=== PATIENT | male | born 1945 | race Caucasian/White ===

== ENCOUNTER → 2024-02-04 15:18 | Outpatient (REF) | payer OTHER, SELFPAY | LOC: PAVMRI 15:18 | PROVIDERS: ATTENDING PHYSICIAN Physical Medicine & Rehabilitation; PRIMARYCARE PHYSICIAN Family Medicine | DX: M54.16 Radiculopathy, lumbar region (principal) | CPT/HCPCS: 72148 ==

== ENCOUNTER 2024-04-17 16:51 | Inpatient (IN) | payer OTHER, SELFPAY ==
[2024-04-17] VITALS (11 sets, daily range): BP systolic 90–134; BP diastolic 49–110; BMI 28.3; BMI 28.2
[2024-04-17 11:10] LABS: % Basophils 0.6 % (0-2); % Eosinophils 2.1 % (0-6); % Immature Granulocytes 0.3 % (0-0.5); % Lymphocytes 11.4 % (20.5-51.1); % Monocytes 8.9 % (1.7-9.3); % Neutrophils 76.7 % (42.2-75.2); Absolute Basophils 0.1 10^3/uL (0-0.2); Absolute Eosinophils 0.2 10^3/uL (0-0.7); Absolute Monocytes 0.8 10^3/uL (0.1-0.6); Absolute Neutrophils 6.7 10^3/uL (1.4-6.5); Hematocrit 31.6 % (39.0-52.0); Mean Corp Hgb Conc. 31.6 g/dL (33.0-37.0); Mean Corpuscular Hgb 29.9 pg (27.0-31.0); Mean Corpuscular Volume 94.3 fL (80.0-94.0); Mean Platelet Volume 10.5 fL (7.4-10.4); Nucleated Red Blood Cells % 0 % (-); Platelet Count 307 10^3/uL (130-400); Red Blood Cell Count 3.35 10^6/uL (4.70-6.10); Red Cell Dist. Width 15.7 % (11.5-14.5); White Blood Cell Count 8.8 10^3/uL (4.8-10.8)
[2024-04-17 11:24] LABS: ALT (SGPT) 14 U/L (0-50); AST (SGOT) 24 U/L (17-59); Albumin 3.7 g/dl (3.5-5.0); Alkaline Phosphatase 207 U/L (38-126); Blood Urea Nitrogen 20 mg/dl (9-20); Carbon Dioxide 24 mmol/L (22-30); Chloride 104 mmol/L (98-107); Estimated Creatinine Clearance 41 ml/min; Glucose 138 mg/dl (70-99); Sodium 137 mmol/L (135-145); Total Protein 6.6 g/dl (6.3-8.2); eGFR 50.81
[2024-04-17 11:32] LABS: NT-proBNP 4220 pg/ml
[2024-04-17 12:57] LABS: Urine Albumin Negative (Neg - Trace); Urine Bilirubin Negative (Negative); Urine Character Clear (Clear); Urine Color Yellow; Urine Glucose Negative (Negative); Urine Ketone Negative (Negative); Urine Leukocyte 2+ (Negative); Urine Nitrite Negative (Negative); Urine Occult Blood Negative (Negative); Urine Urobilinogen Negative (Neg - 1+)
[2024-04-17 13:33] LABS: Urine Bacteria Few (Negative); Urine White Cell 21-25 /HPF (0-5)
--- NOTE | 2024-04-17 15:05 | ED.GENMED ---
History of Present Illness
General
Chief Complaint: Swelling
Source: patient and family
Time Seen by Provider: 04/17/24 12:10
History of Present Illness
History of Present Illness:
78-year-old male presents with family who states the patient has become more confused and weak with increased leg swelling. He recently had a right subtrochanteric hip fracture that was treated at [facility]. While admitted to the hospital
postoperatively he developed a GI bleed. He also developed a DVT in his right leg. He had an IVC filter placed while in the hospital and was started on Plavix. He was discharged to rehab. Over the past several days he has been noted to be
confused and straight from his cognitive baseline. They also note increased swelling to both legs. They note a cough and noticed that he was easily fatigued. No prior diagnosis of CHF. No chills or sweats. No abdominal pain or vomiting. No
other complaints at this
Past History
Past History
ED Past Medical History: CAD, HTN, Hypercholesterolemia, NIDDM and AL
ED Past Surgical History: Cardiac (CABG times 01/03/1997)
Social History
Tobacco: Non-smoker
Alcohol: Occasional
Drug: None
Personal:
Living: with family
Employment: Retired
Family History
Family History: Hypertension and CAD
Phy Exam
Physical Exam
Physical Exam:
General: Well-appearing male no acute respiratory distress
HEENT: Normocephalic atraumatic
Heart: Regular rate and rhythm no murmurs
Lungs: No wheeze or rales
Abdomen soft nontender nondistended
Extremities: Pitting edema bilateral lower extremities right greater than the left no cyanosis
Vascular: 2+ dorsalis pedis pulse bilateral feet
Neurologic: Good sensation both legs alert. Somewhat slow to respond to questions at times. No facial asymmetry
Scores
Heart Failure Risk
Heart Failure Risk Score: Not Applicable
Course
Orders/Labs/Results
Orders:
Orders
04/17/24 10:54
Electrocardiogram (*1) Urgent
Reason for Study: Shortness of Breath
04/17/24 10:55
EKG- Treatment ONCE
04/17/24 10:56
BNP [NT-proBNP] Urgent
Complete Blood Count/With Diff Urgent
Comprehensive Metabolic Panel Urgent
04/17/24 12:25
Venous Doppler Lwr Ext Rt [US Periph Venous LOWER Ext RT] Urgent
Comment:
Reason For Exam: swelling
04/17/24 12:26
CR Chest - 2 Views Urgent
Comment:
Reason For Exam: cough, sob
04/17/24 12:48
Urinalysis Reflex To Culture Urgent
Date Specimen was Collected: 04/17/24
Time Specimen was Collected: 12:46
Urine Microscopic Reflex Cult Urgent
Urine Culture Urgent
GRAYSON Source: U
Specimen Description:
Date Specimen was Collected: 04/17/24
Time Specimen was Collected: 12:46
Abnormal Lab Results
04/17/24 04/17/24
10:56 12:48
RBC 3.35 L 10^6/uL
(4.70-6.10)
Hgb 10.0 L g/dL
(13.0-18.0)
Hct 31.6 L %
(39.0-52.0)
MCV 94.3 H fL
(80.0-94.0)
MCHC 31.6 L g/dL
(33.0-37.0)
RDW 15.7 H %
(11.5-14.5)
MPV 10.5 H fL
(7.4-10.4)
Absolute Neuts (auto) 6.7 H 10^3/uL
(1.4-6.5)
Absolute Lymphs (auto) 1.0 L 10^3/uL
(1.2-3.4)
Absolute Monos (auto) 0.8 H 10^3/uL
(0.1-0.6)
Neutrophils % 76.7 H %
(42.2-75.2)
Lymphocytes % 11.4 L %
(20.5-51.1)
Creatinine 1.4 H mg/dL
(0.7-1.3)
Glucose 138 H mg/dl
(70-99)
Alkaline Phosphatase 207 H U/L
(38-126)
Leukocyte Esterase Rfl 2+ A
(Negative)
Urine WBC (Reflex) 21-25 A /HPF
(0-5)
Urine Bacteria (Reflex) Few A
(Negative)
04/17/24 10:56
04/17/24 10:56
Vital Signs
Initial and Last Documented VS:
Initial Vital Signs
Temp Pulse Resp BP Pulse Ox
97.7 F 87 19 113/58 94
04/17/24 10:53 04/17/24 10:53 04/17/24 10:53 04/17/24 10:53 04/17/24 10:53
Last Documented Vital Signs
Temp Pulse Resp BP Pulse Ox
97.7 F 85 15 90/49 95
04/17/24 10:53 04/17/24 13:15 04/17/24 13:15 04/17/24 13:02 04/17/24 11:15
MDM/Problems Addressed
Differential Diagnosis Includes:
Weakness confusion leg edema cough. Considered DVT versus CHF versus UTI or anemia.
Discussed recent hospitalization at [facility] with the daughter.
Ultrasound right leg pending. Chest x-ray ordered. Labs pending. Urinalysis pending
*Critical Care Note
Total Time (30-74mins, 75-104mins- exclusive of procedures): Not Applicable
Update Note
Update Note:
Urinalysis with leukocytes 21 white blood cells per high-powered field and few bacteria. Question possible underlying UTI will start Rocephin
Ultrasound right leg demonstrates DVT in the right lower leg. When inquired about any anticoagulants, family states he developed a GI bleed in the hospital and they opted to place a filter instead. BNP is elevated today at over 4000. No prior
diagnosis of CHF. Patient has a cough but chest x-ray is clear. I suspect some of his symptoms may be related to CHF. Lasix ordered. Will admit to hospital for volume overload, DVT and urinary tract infection
ED Attending Note
-
Portions of this chart may have been created with voice recognition software.� Occasional wrong word or��sound alike� substitutions may have occurred due to the inherent limitations of voice recognition software.
Discharge Plan
Departure
Patient Disposition: Admit
Date of Disposition: 04/17/24
Time of Disposition: 15:13
Admit to: Telemetry
Presentation/result/management discussed w/ accepting MD/DO: Hospitalist
Discharge Problem:
CHF (congestive heart failure), Acute UTI, DVT (deep venous thrombosis)
Prescriptions:
No Action
fenofibrate nanocrystallized 145 MG tablet
145 mg PO HS
nitroglycerin 0.4 MG tablet, sublingual
0.4 mg sublingual [id number] PRN (Reason: chest pain)
atorvastatin 20 MG tablet
20 mg PO HS
fluticasone propionate 50 mcg/actuation Arvin,Suspension
1 spray INTRANASAL BIDPRN PRN (Reason: ALLERGIES)
isosorbide mononitrate 30 MG tablet extended release 24 hr
30 mg PO DAILY
tamsulosin 0.4 mg Capsule
0.4 mg PO HS Qty: 30 0RF
cyanocobalamin (vitamin B-12) 1,000 mcg capsule
1,000 mcg PO DAILY Qty: 30 0RF
alprazolam 0.5 mg Tablet
0.5 mg PO DAILYPRN PRN (Reason: anxiety)
acetaminophen [Tylenol] 325 mg Tablet
650 mg PO Q6HPRN PRN (Reason: mild pain)
metoprolol succinate [Toprol XL] 50 mg Tablet Extended Release 24 Hr
50 mg PO DAILY
hydrocodone-acetaminophen 5-325 mg Tablet
1 tab PO Q4HPRN PRN (Reason: severe pains)
clopidogrel [Plavix] 75 mg Tablet
75 mg PO DAILY
magnesium hydroxide [Milk of Magnesia] 400 mg/5 mL Suspension
2,400 mg PO [id number] PRN (Reason: constipation)
bisacodyl [Dulcolax (bisacodyl)] 10 mg Suppository
10 mg IA DAILYPRN PRN (Reason: if on bm aftr mom)
pantoprazole [Protonix] 40 mg Tablet,Delayed Release (Dr/Ec)
40 mg PO DAILY
lidocaine 5 % Adhesive Patch,Medicated
1 patch TOPICAL DAILY
Fleet Enema 19-7 gram/118 mL Enema
118 ml IA DAILYPRN PRN (Reason: if no bm aftr dulcolax)
furosemide [Lasix] 20 mg Tablet
20 mg PO .[id number]
Patient Comments:
for 7 days starting 04/17/2024
loratadine [Claritin] 10 mg Tablet
10 mg PO DAILY
coQ10 (ubiquinol) 200 mg Capsule
200 mg PO DAILY
Referrals:
Julito Perry MD [Family Provider] -
Interventions
Interventions:
*Risk Screen - Suicide Last Done: 04/17/24 10:53
*General Assessment Last Done: 04/17/24 10:53
*Neglect/Abuse Screening Last Done: 04/17/24 10:53
*ED COVID-19 Vaccine History Last Done: 04/17/24 10:53
ED- Cardiac Assessment Last Done: 04/17/24 10:53
ED- Pulmonary Assessment Last Done: 04/17/24 10:53
ED-Skin Assessment Last Done: 07/01/24 10:53
Discharge Date and Time
Print Language: MOHAWK
[2024-04-17 15:08] LABS: Urine Red Blood Cell 0-2 /HPF (0-2)
[2024-04-17] MEDS: LASIX 40 MG IV (15:21)
[2024-04-17] MEDS: ROCEPHIN 1000 MG IV (15:26)
--- NOTE | 2024-04-17 15:50 | HPS.HSE ---
Addendum entered and electronically signed by Shilo Servin MD 04/17/24 16:43:
78-year-old male with a past medical history of recent right hip fracture status post repair at [facility] 1 month ago, acute right lower extremity DVT status post IVC filter due GI bleed, CAD, stage III CKD, bladder cancer, hypertension, hyperlipidemia,
and type 2 diabetes presents from [facility] short-term rehab for worsening bilateral lower extremity edema. He was recently started on Lasix. Repeat lower extremity Dopplers here shows the previous acute right lower extremity DVT.
Patient denies chest pain, shortness of breath, or palpitations. He does have a cough that has been present for 2 weeks, is now worsened.
He denies orthopnea. No fever, no dysuria.
Will treat with Lasix 40 mg IV daily, check echocardiogram, consult cardiology.
Urine analysis shows pyuria. Continue Rocephin for now, follow-up on cultures.
I have personally seen and examined the patient, and agree with the plan of care as documented by JOSELO Shukla.
Advance care planning discussed, patient is a full code.
All other issues as outlined by the advanced care practitioner.
Updated daughter at bedside 04/17/2024.
Total time spent to see the patient on the floor, examine the patient, review data and lab results, discuss treatment plan with patient, nursing staff around 76 minutes.
Original Note:
Family Physician
-
Family Physician: uJlito Perry
Chief Complaint
-
b/l LE Edema
cough
History of Present Illness
78-year-old male with PMH for CAD,HTN, HLD, DM, [place] presented to us with confusion, worsening agitation, generalized weakness, and B/LE LE. He recently had a right subtrochanteric hip fracture that was treated at [facility]. While admitted
to the hospital postoperatively he developed a GI bleed. He also developed a DVT in his right leg. He had an IVC filter placed while in the hospital and was started on Plavix. He was discharged to rehab. Over the past several days he has been
noted to be confused ,agitated. denied dysuria, urinary frequency, burning. he was also noted to have worsening b/l LE edema. he was started on Lasix last night.he is complaining of cough, which get worse when talking and with activity. denied sob.
denied SINGH< dizzy or syncopal episode. denied fever, chills, chest pain, sob. denied abdominal pain, n,v,d.
patient recieved iv ceftriaxone for UTI and lasix for CHF. admitting for further managment.
Medical History
Past Medical History
Past Medical History: Reports Other
Additional Past Medical History:
History of bladder cancer
Stomach ulcer anemia
Hypertension
Hyperlipidemia
CKD
Colon polyps
Type 2 diabetes muscle spasm
Past Surgical History: Reports Other
Additional Past Surgical History:
Cardiac stents
Knee replacement
Coronary bypass graft
TURBT
Social History
Tobacco: Former Smoker
Alcohol: Occasional
Drug: None
Living: With Family
Family History
Family History: Not pertinent
Allergies / Home Medications
Allergies reflects when Allergies were last updated in [facility].
Home Medications with original date entered in [facility]
Allergy/Medication List:
Allergies
Allergy/AdvReac Type Severity Reaction Status Date / Time
No Known Allergies Allergy Verified 04/17/24 11:55
Home Medications
fenofibrate nanocrystallized 145 mg tablet 145 mg PO HS High cholesterol 08/03/13
nitroglycerin 0.4 mg sublingual tablet 0.4 mg sublingual [id number] PRN chest pain 03/08/17
atorvastatin 20 mg tablet 20 mg PO HS High cholesterol 04/07/21
fluticasone propionate 50 mcg/actuation nasal spray,suspension 1 spray intranasal BIDPRN PRN ALLERGIES 04/30/22
isosorbide mononitrate 30 mg tablet,extended release 24 hr 30 mg PO DAILY Heart disease/condition 04/30/22
cyanocobalamin (vitamin B-12) 1,000 mcg capsule 1,000 mcg PO DAILY #30 caps 05/02/22
tamsulosin 0.4 mg capsule 0.4 mg PO HS #30 caps 05/02/22
alprazolam 0.5 mg tablet 0.5 mg PO DAILYPRN PRN anxiety 04/28/23
acetaminophen 325 mg tablet (Tylenol) 650 mg PO Q6HPRN PRN mild pain 04/17/24
bisacodyl 10 mg rectal suppository (Dulcolax (bisacodyl)) 10 mg VA DAILYPRN PRN if on bm aftr mom 04/17/24
clopidogrel 75 mg tablet (Plavix) 75 mg PO DAILY 04/17/24
coQ10 (ubiquinol) 200 mg capsule 200 mg PO DAILY 04/17/24
furosemide 20 mg tablet (Lasix) 20 mg PO .[id number] 04/17/24
hydrocodone 5 mg-acetaminophen 325 mg tablet 1 tab PO Q4HPRN PRN severe pains 04/17/24
lidocaine 5 % topical patch 1 patch topical DAILY right femur 04/17/24
loratadine 10 mg tablet (Claritin) 10 mg PO DAILY 04/17/24
magnesium hydroxide 400 mg/5 mL oral suspension (Milk of Magnesia) 2,400 mg PO [id number] PRN constipation 04/17/24
metoprolol succinate 50 mg tablet,extended release 24 hr (Toprol XL) 50 mg PO DAILY 04/17/24
pantoprazole 40 mg tablet,delayed release (Protonix) 40 mg PO DAILY 04/17/24
sodium phosphates 19 gram-7 gram/118 mL enema (Fleet Enema) 118 ml VA DAILYPRN PRN if no bm aftr dulcolax 04/17/24
Review of Systems
-
Constitutional: Reports No Symptoms
EENT: Reports No Symptoms
Respiratory: Reports Cough
Cardiac: Reports No Symptoms
Abdomen/GI: Reports No Symptoms
: Reports No Symptoms
Musculoskeletal: Reports No Symptoms and Edema (Bilateral lower extremities edema)
Skin: Reports No Symptoms
Neurological: Reports No Symptoms
Endocrine: Reports No Symptoms
Hematologic/Lymphatic: Reports No Symptoms
Psych: Reports No Symptoms
Physical Exam
Vital Signs
Vital Signs
Temp Pulse Resp BP Pulse Ox
97.7 F 86 19 132/57 95
04/17/24 10:53 04/17/24 15:30 04/17/24 15:30 04/17/24 15:21 04/17/24 11:15
Physical Exam
General: Well Developed, Well Nourished and No Apparent Distress
HEENT: NormoCephalic, Moist mucous membranes and Atraumatic
Respiratory: Clear
Cardiac: S1/S2 and Regular Rhythm; No Murmur or Rub
GI: Soft, Non Tender, Non Distended and Normal Bowel Sounds; No Organomegaly
Rectal: Deferred by Provider
Musculoskeletal: No Clubbing, No Cyanosis and Other (Bilateral lower extremities edema right greater than left)
Skin: No Rash
Neuro: AO x 3 and Nonfocal/grossly intact
Psych: Calm
Laboratory Results
-
04/17/24 10:56
04/17/24 10:56
Laboratory Results
Total Bilirubin 1.0 mg/dl (0.2-1.3) 04/17/24 10:56
AST 24 U/L (17-59) 04/17/24 10:56
ALT 14 U/L (0-50) 04/17/24 10:56
Alkaline Phosphatase 207 U/L (38-126) H 04/17/24 10:56
Data Reviewed
-
Diagnostic Radiology: Report Reviewed by me
Lab Data: Labs Reviewed by me
Impression/Plan
-
# Bilateral lower extremities edema/CHF exacerbation
-BNP 4220
-iv Lasix 4omg continued
-strict I&O
-daily weight
-fluid restriction
-obtain ECHO
-cardiology consulted
-chest x ray with No active pulmonary process.
#DVT
-duplex with Acute, mostly occlusive [id number] deep venous thrombosis within the right posterior tibial vein and soleal vein.
-GI bleed in the past on AC, IV filter in place
-on plavix
#pyuria
-iv ceftriaxone continued
-urine culture pending
#recent hip surgery
-hydrocodone continued for pain
-lidocaine continued
#anemia of chronic disease
-hgb 10.0
- no active bleeding
-ctm
#CKD stage 3b
-cr 1.4
-ctm
#Superficial bladder cancer -status post TURBT on 04/24.
#urinary retention
-Flomax continued
#Hyperlipidemia -on atorvastatin and fenofibrate at home.
#Essential hypertension
-Isosorbide continued
-Metoprolol continued
#Anxiety disorder
-Xanax continued
# GERD
-PPI continued
#History of GI bleed
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
#Full code
--- NOTE | 2024-04-17 16:40 | CON.CAR ---
Addendum entered and electronically signed by Edison Xavier MD 04/17/24 18:21:
I saw and examined the patient.
The [employer]'s note was reviewed and I agree with the note.
Comment: His CXR is unremarkable. He has no PND/orthopnea. He has bilateral R>>L lower extremity edema. Has hx of IVC filter and prior DVT. pBNP elevated with some CKD. May well have heart failure explaining his edema. May be reasonable to check
duplex of LE to assess if he has DVT(s) and evidence venous disease. Will watch response to diuresis and plan for echo this admit.
Original Note:
Consultation
Consultation Request
Date/Time Consultation Requested: 04/17/2024 16:30
Date/Time Consultation Performed: 04/17/2024 17:00
Requesting Provider: JOSELO Shukla
Performing Provider: JOSELO Atkinson for Dr. Xavier
Reason for Consultation: Heart failure exacerbation
Medical History
-
Chief Complaint: Lower extremity edema
History of Present Illness:
Patient is an 78-year-old male with CAD (prior CABG and BMS x 2), hypertension, dyslipidemia, chronic kidney disease, bladder cancer, recent hip fracture and DVT status post IVC filter who presented with lower extremity edema and confusion. He was
recently admitted at [facility] after a fall. He had orthopedic surgery on his right hip due to fracture. He then had an occlusive thrombus in his right leg. He was started on oral anticoagulation (medication unknown) and developed GI bleeding. An IVC
filter was placed. Cardiology was consulted by the hospitalist service for concerns for heart failure. He does have an elevated proBNP but he has baseline chronic kidney disease stage IIIb. He has no orthopnea. He has no PND. His chest x-ray is
clear. His lower extremity edema is only in his right leg. He has chronic anemia, current baseline unknown however he was 2g higher approximately 6 months ago. He is slightly confused, unclear baseline. He is having no chest pain.
Past Medical History
Past Medical History: CAD, Cancer (Bladder), HTN, Hypercholesterolemia, NIDDM, [place] and Renal Failure (Chronic kidney disease)
Past Surgical History: Cardiac (CABG), Orthopedic and Urological
Social History
Tobacco: Former Smoker
Alcohol: None
Living: Intermediate ([facility] [[facility]
Employment: Retired
Family History
Family History: Reviewed & Not Pertinent
Allergies / Home Medications
Allergy/AdvReac Type Severity Reaction Status Date / Time
No Known Allergies Allergy Verified 04/17/24 11:55
�Medication �Instructions �Recorded �Confirmed �Type
fenofibrate nanocrystallized 145 145 mg PO HS High cholesterol 08/03/13 04/17/24 History
mg tablet
nitroglycerin 0.4 mg sublingual 0.4 mg sublingual [id number] PRN 03/08/17 04/17/24 History
tablet chest pain
atorvastatin 20 mg tablet 20 mg PO HS High cholesterol 04/07/21 04/17/24 History
fluticasone propionate 50 1 spray intranasal BIDPRN PRN 04/30/22 04/17/24 History
mcg/actuation nasal ALLERGIES
spray,suspension
isosorbide mononitrate 30 mg 30 mg PO DAILY Heart 04/30/22 04/17/24 History
tablet,extended release 24 hr disease/condition
cyanocobalamin (vitamin B-12) 1,000 mcg PO DAILY #30 caps 05/02/22 04/17/24 Rx
1,000 mcg capsule
tamsulosin 0.4 mg capsule 0.4 mg PO HS #30 caps 05/02/22 04/17/24 Rx
alprazolam 0.5 mg tablet 0.5 mg PO DAILYPRN PRN anxiety 04/28/23 04/17/24 History
acetaminophen 325 mg tablet 650 mg PO Q6HPRN PRN mild pain 04/17/24 04/17/24 History
(Tylenol)
bisacodyl 10 mg rectal suppository 10 mg NH DAILYPRN PRN if on bm 04/17/24 04/17/24 History
(Dulcolax (bisacodyl)) aftr mom
clopidogrel 75 mg tablet (Plavix) 75 mg PO DAILY 04/17/24 04/17/24 History
coQ10 (ubiquinol) 200 mg capsule 200 mg PO DAILY 04/17/24 04/17/24 History
furosemide 20 mg tablet (Lasix) 20 mg PO .[id number] 04/17/24 04/17/24 History
hydrocodone 5 mg-acetaminophen 325 1 tab PO Q4HPRN PRN severe pains 04/17/24 04/17/24 History
mg tablet
lidocaine 5 % topical patch 1 patch topical DAILY right femur 04/17/24 04/17/24 History
loratadine 10 mg tablet (Claritin) 10 mg PO DAILY 04/17/24 04/17/24 History
magnesium hydroxide 400 mg/5 mL 2,400 mg PO [id number] PRN 04/17/24 04/17/24 History
oral suspension (Milk of Magnesia) constipation
metoprolol succinate 50 mg 50 mg PO DAILY 04/17/24 04/17/24 History
tablet,extended release 24 hr
(Toprol XL)
pantoprazole 40 mg tablet,delayed 40 mg PO DAILY 04/17/24 04/17/24 History
release (Protonix)
sodium phosphates 19 gram-7 118 ml NH DAILYPRN PRN if no bm 04/17/24 04/17/24 History
gram/118 mL enema (Fleet Enema) aftr dulcolax
Review of Systems
-
History Source: Patient
All other systems: Negative unless noted
Constitutional: No Symptoms
EENT: No Symptoms
Respiratory: No Symptoms
Cardiac: No Symptoms
Abdomen/GI: No Symptoms
: Frequency
Musculoskeletal: Edema
Skin: No Symptoms
Neurological: No Symptoms
Endocrine: No Symptoms
Hematologic/Lymphatic: No Symptoms
Physical Exam
Vital Signs
Temp Pulse Resp BP Pulse Ox
97.7 F 86 19 132/57 95
04/17/24 10:53 04/17/24 15:30 04/17/24 15:30 04/17/24 15:21 04/17/24 11:15
Lab Results
04/17/24 10:56
04/17/24 10:56
Dbk-[id number]-Mjrckitjftv Pept 4220 pg/ml 04/17/24 10:56
Physical Exam
General: Well Developed, Well Nourished, No Apparent Distress and Comfortable
HEENT: Normocephalic, Anicteric and Moist Mucous Membranes
Respiratory: Clear and Non Labored Respirations
Cardiac: S1/S2, Regular Rhythm and Peripheral Edema (RLE)
Breast: Deferred by me
GI: Soft, Non Tender, Non Distended and Normal Bowel Sounds
Rectal: Deferred by Provider
Genito-urinary: No Costovertebral Tender
Musculoskeletal: No Clubbing, No Cyanosis and No Edema
Skin: Warm and Dry
Neuro: Oriented (self and place)
Hematologic/Lymphatic: No Lymphadenopathy
Psych: Calm
Impression / Plan
-
BACKGROUND: 78M with CAD (prior CABG and BMS x 2), hypertension, dyslipidemia, chronic kidney disease, bladder cancer, recent hip fracture and DVT status post IVC filter who presented with lower extremity edema and confusion. He was found to have
an elevated proBNP. Cardiology was consulted for concerns for acute heart failure.
Transactional Attorney: Dr. Fermín Brandt
Right lower extremity edema
-He was given furosemide in the emergency department
-He denies PND, orthopnea, and his chest x-ray does not show heart failure
-He has an elevated proBNP but he does have chronic kidney disease
-Echocardiogram
-Recent DVT, consider repeat ultrasound for postphlebitic syndrome
CAD
-CABG x 3 (03/1998), BMS x 2 (07/2013), OLIVER x 2 [id number] (02/2014)
-Stable without chest pain
-On beta-ashutosh, clopidogrel, and isosorbide mononitrate
CKD stage IIIb, follow with diuresis
UTI, acute, per primary
Recent hip fracture, right, surgical treatment at [facility]
Recent DVT, status post IVC filter (GIB on anticoagulation)
Hypertension, stable, continue medical therapy
Anemia of chronic disease
NIDDM
Bladder cancer, superficial, status post TURBT
Former smoker, continued cessation recommended
Data Reviewed
-
EKG: Report Reviewed by me (Sinus rhythm, bigeminy, rate 95)
[2024-04-17] MEDS: HEPARIN 5000 UNITS SC (19:49)
[2024-04-17] MEDS: LIDOCAINE 4% PATCH 1 PATCH TOPICAL (19:50)
[2024-04-17] MEDS: LIPITOR 20 MG PO (20:36)
[2024-04-17] MEDS: FLOMAX 0.400000000000000022 MG PO (20:36)
[2024-04-17] MEDS: TRICOR 48 MG PO (20:36)
[2024-04-18] VITALS (9 sets, daily range): BP systolic 92–133; BP diastolic 57–80; PULSE 95; BMI 27.5
[2024-04-18 07:26] LABS: Hematocrit 30.5 % (39.0-52.0); Hemoglobin 10.1 g/dL (13.0-18.0); Mean Corp Hgb Conc. 33.1 g/dL (33.0-37.0); Mean Corpuscular Hgb 30.3 pg (27.0-31.0); Mean Corpuscular Volume 91.6 fL (80.0-94.0); Mean Platelet Volume 10.7 fL (7.4-10.4); Platelet Count 324 10^3/uL (130-400); Red Blood Cell Count 3.33 10^6/uL (4.70-6.10); Red Cell Dist. Width 15.8 % (11.5-14.5); White Blood Cell Count 8.5 10^3/uL (4.8-10.8)
[2024-04-18 08:33] LABS: TSH Reflex To Free T4 4.92 uIU/ml (0.47-4.68)
[2024-04-18 09:00] LABS: ALT (SGPT) 13 U/L (0-50); AST (SGOT) 25 U/L (17-59); Albumin 3.6 g/dl (3.5-5.0); Alkaline Phosphatase 205 U/L (38-126); Blood Urea Nitrogen 21 mg/dl (9-20); Calcium 9.5 mg/dl (8.4-10.2); Carbon Dioxide 23 mmol/L (22-30); Chloride 104 mmol/L (98-107); Direct Bilirubin 0.5 mg/dl (0.0-0.4); Estimated Creatinine Clearance 42 ml/min; Glucose 102 mg/dl (70-99); HDL Cholesterol 28 mg/dl; LDL Cholesterol, Calculated 37 mg/dl; Magnesium 1.5 mg/dl (1.6-2.3); Potassium 3.9 mmol/L (3.5-5.1); Sodium 138 mmol/L (135-145); Total Cholesterol 105 mg/dl (50-199); Total Protein 6.5 g/dl (6.3-8.2); Triglyceride 202 mg/dl (10-149); Very Low Density Lipoprotein 40 mg/dl (0-30); eGFR 55.53
--- NOTE | 2024-04-18 09:03 | W.PN.HOSP.TC ---
Today's Communication/Plan
-
see bold
Assessment / Plan
Assessment / Plan
HPI: 78-year-old male with a past medical history of recent right hip fracture status post repair at [facility] 1 month ago, acute right lower extremity DVT status post IVC filter due GI bleed, CAD, stage III CKD, bladder cancer, hypertension,
hyperlipidemia, and type 2 diabetes presents from [facility] short-term rehab for worsening bilateral lower extremity edema. He was recently started on Lasix. Repeat lower extremity Dopplers here shows the previous acute right lower extremity
DVT.
#Worsening bilateral lower extremity edema, R>L
Denies shortness of breath
Echo reviewed
Appreciate cardiology input, patient does not have CHF
Patient's lower extremity edema is much improved on IV Lasix, medically stable for discharge on Lasix 20 mg p.o. daily
TEDs stockings to left leg
#Recent right hip fracture status post repair at [facility] 1 month ago
PT/OT - rec SNF
Family wishes re-eval tomorrow to see if pt can go home
#Dry cough for 2 weeks
Trial of Pepcid
#Acute right lower extremity DVT
Status post IVC filter, continue Plavix
No anticoagulation secondary to recent GI bleed
#Probable urinary tract infection
Urine cultures growing 50,000 of Enterococcus
Change Rocephin to amoxicillin to complete 7-day course
#Anemia of chronic disease
Monitor hemoglobin
#Anxiety
Continue as needed Xanax
#Stage III CKD
Monitor hemoglobin
#Urinary retention
Continue Flomax
#Superficial bladder cancer status post TURBT
DVT prophylaxis�subcu heparin
Full code
Updated daughter at bedside and on phone 04/18
Total time spent to see the patient on the floor, examine the patient, review data and lab results, discuss treatment plan with patient, nursing staff around 51 minutes.
Physical Exam
General: Frail, elderly, no acute distress
HEENT: Normocephalic, Atraumatic, EOMI, MMM
Respiratory: Clear to Auscultation bilaterally
Cardiac: Normal S1/S2, Regular Rate and Rhythm
GI: Soft, Nontender, Nondistended, Normal Bowel Sounds
Extremities:
Moderate right lower extremity edema
Mild left ankle edema
Neuro: Nonfocal/Grossly Intact
Psych: Calm, Cooperative
Anticipated Discharge: Within 24 hours
Subjective/Interval History
-
Date of Service: April 18, 2024
Patient continues to have a dry cough. No shortness of breath, no chest pain. No fever, no vomiting.
Objective Data
-
Labs:
Laboratory Results
04/18/24
07:06
WBC 8.5
Hgb 10.1 L
Hct 30.5 L
Plt Count 324
Sodium 138
Potassium 3.9
Chloride 104
Carbon Dioxide 23
BUN 21 H
Creatinine 1.3
Glucose 102 H
Calcium 9.5
Total Bilirubin 1.0
AST 25
ALT 13
Alkaline Phosphatase 205 H
Vital Signs:
Vital Signs
Temp Pulse Resp BP Pulse Ox
97.7 F 90 14 117/71 95
04/18/24 07:00 04/18/24 07:00 04/18/24 07:00 04/18/24 07:00 04/18/24 07:00
I&O
04/17/24 04/18/24 04/19/24
06:59 06:59 06:59
Output Total 1774
Balance -1774 / -1774
[2024-04-18 09:04] LABS: Free T4 1.57 ng/dl (0.78-2.19)
[2024-04-18] MEDS: MIRALAX 17 GRAMS PO (09:11)
[2024-04-18] MEDS: LASIX 40 MG IV (09:11)
[2024-04-18] MEDS: TOPROL XL 50 MG PO (09:12)
[2024-04-18] MEDS: PLAVIX 75 MG PO (09:12)
[2024-04-18] MEDS: HEPARIN 5000 UNITS SC ×2 (09:12→21:00)
[2024-04-18] MEDS: CLARITIN 10 MG PO (09:13)
[2024-04-18] MEDS: PROTONIX 40 MG PO (09:13)
[2024-04-18] MEDS: IMDUR (EXTENDED RELEASE) 30 MG PO (09:13)
[2024-04-18] MEDS: MAGNESIUM SULFATE 50 IV (09:14)
--- NOTE | 2024-04-18 10:20 | W.PN.CD ---
Today's Communication / Plan
-
-Unilateral right lower extremity edema is secondary to right lower extremity DVT; has an IVC filter.
-Can discharge on Lasix 20 mg PO daily.
-Outpatient follow-up with his primary Durability Engineer.
Impression / Plan
-
BACKGROUND: 78M with CAD (prior CABG and BMS x 2), hypertension, dyslipidemia, chronic kidney disease, bladder cancer, recent hip fracture and DVT status post IVC filter who presented with lower extremity edema and confusion. He was found to have
an elevated proBNP. Cardiology was consulted for concerns for acute heart failure.
Durability Engineer: Dr. Fermín Brandt
Unilateral right lower extremity edema
-Secondary to right lower extremity DVT; has an IVC filter.
-Can discharge on Lasix 20 mg PO daily.
CAD
-CABG x 3 (03/1998), BMS x 2 (07/2013), OLIVER x 2 SVG�OM1 (02/2014)
-Remains stable.
-Continue beta-ashutosh, clopidogrel, and isosorbide mononitrate.
CKD stage IIIb-creatinine stable.
UTI, acute, per primary
Recent hip fracture, right, surgical treatment at [facility]
Recent DVT, status post IVC filter (GIB on anticoagulation)
Hypertension, stable, continue medical therapy
Anemia of chronic disease
NIDDM
Bladder cancer, superficial, status post TURBT
Former smoker, continued cessation recommended
Physical Exam
Vital Signs/Labs
Vital Signs
Temp Pulse Resp BP Pulse Ox
97.7 F 91 14 117/81 95
04/18/24 07:00 04/18/24 09:12 04/18/24 07:00 04/18/24 09:12 04/18/24 07:00
04/17/24 04/18/24 04/19/24
06:59 06:59 06:59
Actual Weight 79.577 kg
04/18/24 07:06
04/18/24 07:06
Magnesium 1.5 mg/dl (1.6-2.3) L 04/18/24 07:06
Triglycerides 202 mg/dl (10-149) H 04/18/24 07:06
LDL Cholesterol, Calc 37 mg/dl 04/18/24 07:06
VLDL Cholesterol, Calc 40 mg/dl (0-30) H 04/18/24 07:06
HDL Cholesterol 28 mg/dl 04/18/24 07:06
Free T4 1.57 ng/dl (0.78-2.19) 04/18/24 07:06
04/17/24
10:56
[id number] Pept 4220
Physical Exam
Constitutional: No acute distress and Comfortable
EENT: Anicteric
Cardiovascular: Rhythm & rate is regular, Systolic murmur absent, Pedal edema present (2+ right lower extremity edema) and S1S2 is normal
Respiratory: Respiratory effort normal and Lungs clear to auscul.
GI: Soft
Neuro/Psych: AO x 3
Other: Skin (Warm, dry, intact)
Data Reviewed
-
Date of Service: April 18, 2024
EKG: Tracing Personally Visualized and interpreted (Telemetry: Sinus rhythm, PVCs)
Medical Tests (PFT, Pathology etc): Discussed with Nurse, Discussed with Patient and Discussed with Family (Daughter and at bedside)
Labs: Labs Reviewed by me
--- NOTE | 2024-04-18 10:26 | CM ---
Addendum entered by Keeley Ferris 04/18/24 10:41:
referrals sent to multiple facilities, will need insurance auth.
Original Note:
Patient seen bedside.
IA completed.
Patient lives with spouse in a split level home with 1 step to enter thru the garage, 5 steps up to the kitchen and then 7 steps up to bedroom.
No difficulty with ambulation prior to rehab stay for hip fx.
No assistive devices.
Patient was driving prior to rehab stay.
Patient recently at [facility] for rehab and does not wish to return there.
No bed hold at [facility].
Options list provided to daughter and spouse.
PCP; Dr Perry
Pharmacy: [facility]
PT/OT (P).
Plan:skilled rehab when stable.
[2024-04-18] MEDS: PEPCID 10 MG PO (11:31)
[2024-04-18] MEDS: AMOXIL 500 MG PO ×2 (16:21→21:13)
[2024-04-18] MEDS: FLOMAX 0.400000000000000022 MG PO (21:13)
[2024-04-18] MEDS: LIPITOR 20 MG PO (21:13)
[2024-04-18] MEDS: TRICOR 48 MG PO (21:13)
[2024-04-18] MEDS: LIDOCAINE 4% PATCH 1 PATCH TOPICAL (21:14)
[2024-04-18] MEDS: PHENERGAN WITH CODEINE SYRUP 10 ML PO (21:15)
[2024-04-19 03:00] VITALS: BP 100/63
[2024-04-19 06:00] VITALS: BMI 27.6
[2024-04-19 07:00] VITALS: BP 107/58
[2024-04-19 07:34] LABS: Hematocrit 28.5 % (39.0-52.0); Hemoglobin 9.5 g/dL (13.0-18.0); Mean Corp Hgb Conc. 33.3 g/dL (33.0-37.0); Mean Corpuscular Hgb 30.3 pg (27.0-31.0); Mean Corpuscular Volume 90.8 fL (80.0-94.0); Mean Platelet Volume 10.7 fL (7.4-10.4); Platelet Count 314 10^3/uL (130-400); Red Blood Cell Count 3.14 10^6/uL (4.70-6.10); Red Cell Dist. Width 15.3 % (11.5-14.5)
[2024-04-19] MEDS: HEPARIN 5000 UNITS SC ×2 (07:51→23:15)
[2024-04-19] MEDS: MIRALAX 17 GRAMS PO (07:51)
[2024-04-19] MEDS: PLAVIX 75 MG PO (07:53)
[2024-04-19] MEDS: IMDUR (EXTENDED RELEASE) 30 MG PO (07:53)
[2024-04-19] MEDS: PROTONIX 40 MG PO (07:53)
[2024-04-19] MEDS: TOPROL XL 50 MG PO (07:53)
[2024-04-19] MEDS: AMOXIL 500 MG PO ×3 (07:53→23:16)
[2024-04-19] MEDS: LASIX 20 MG PO (07:54)
[2024-04-19] MEDS: PEPCID 10 MG PO (07:54)
[2024-04-19] MEDS: CLARITIN 10 MG PO (07:55)
[2024-04-19 07:56] LABS: Blood Urea Nitrogen 26 mg/dl (9-20); Calcium 9.3 mg/dl (8.4-10.2); Carbon Dioxide 28 mmol/L (22-30); Chloride 99 mmol/L (98-107); Estimated Creatinine Clearance 37 ml/min; Glucose 103 mg/dl (70-99); Magnesium 1.9 mg/dl (1.6-2.3); Potassium 4.1 mmol/L (3.5-5.1); Sodium 136 mmol/L (135-145); eGFR 46.77
--- NOTE | 2024-04-19 08:27 | W.PN.HOSP.TC ---
Addendum entered and electronically signed by Shilo Servin MD 04/19/24 14:16:
Patient's right lower extremity swelling is explained by his right lower extremity DVT.
Patient has concentrated swelling of his left foot and left lower ankle.
Will check left foot x-rays for completeness sake.
Original Note:
Today's Communication/Plan
-
Discharge today
Assessment / Plan
Assessment / Plan
HPI: 78-year-old male with a past medical history of recent right hip fracture status post repair at [facility] 1 month ago, acute right lower extremity DVT status post IVC filter due GI bleed, CAD, stage III CKD, bladder cancer, hypertension,
hyperlipidemia, and type 2 diabetes presents from [facility] short-term rehab for worsening bilateral lower extremity edema. He was recently started on Lasix. Repeat lower extremity Dopplers here shows the previous acute right lower extremity
DVT.
#Worsening bilateral lower extremity edema, R>L
Denies shortness of breath
Echo reviewed
Appreciate cardiology input, patient does not have CHF
Patient's lower extremity edema is much improved on IV Lasix, medically stable for discharge on Lasix 20 mg p.o. daily
TEDs stockings to left leg
Medically stable for discharge to short-term rehab
#Recent right hip fracture status post repair at [facility] 1 month ago
PT/OT - rec SNF
#Dry cough for 2 weeks
Differential diagnosis include reflux, postnasal drip
Trial of Pepcid, change Flonase to twice a day scheduled upon discharge
#Acute right lower extremity DVT
Status post IVC filter, continue Plavix
No anticoagulation secondary to recent GI bleed
#Probable urinary tract infection
Urine cultures growing 50,000 of Enterococcus
Changed Rocephin to amoxicillin to complete 7-day course
#Anemia of chronic disease
Monitor hemoglobin
#Anxiety
Continue as needed Xanax
#Stage III CKD
Monitor hemoglobin
#Urinary retention
Continue Flomax
#Superficial bladder cancer status post TURBT
DVT prophylaxis�subcu heparin
Full code
Updated daughter at bedside and on phone 04/19
Total time spent to see the patient on the floor, examine the patient, review data and lab results, discuss treatment plan with patient, nursing staff around 50 minutes.
Physical Exam
General: Frail, elderly, no acute distress
HEENT: Normocephalic, Atraumatic, EOMI, MMM
Respiratory: Clear to Auscultation bilaterally
Cardiac: Normal S1/S2, Regular Rate and Rhythm
GI: Soft, Nontender, Nondistended, Normal Bowel Sounds
Extremities:
Moderate right lower extremity edema
Mild left ankle edema
Neuro: Nonfocal/Grossly Intact
Psych: Calm, Cooperative
Anticipated Discharge: Today
Subjective/Interval History
-
Date of Service: April 19, 2024
Patient reports feeling better, no chest pain, no shortness of breath.
Objective Data
-
Labs:
Laboratory Results
04/19/24
06:58
WBC 7.0
Hgb 9.5 L
Hct 28.5 L
Plt Count 314
Sodium 136
Potassium 4.1
Chloride 99
Carbon Dioxide 28
BUN 26 H
Creatinine 1.5 H
Glucose 103 H
Calcium 9.3
Vital Signs:
Vital Signs
Temp Pulse Resp BP Pulse Ox
98.1 F 87 18 100/63 97
04/19/24 03:00 04/19/24 03:00 04/19/24 03:00 04/19/24 03:00 04/19/24 03:00
I&O
04/18/24 04/19/24 04/20/24
06:59 06:59 06:59
Intake Total 720 / 720
Output Total 1775 / 1775 1025 / 1025
Balance -1775 / -1775 -305 / -
[2024-04-19 13:40] VITALS: BP 131/70; PULSE 70; O2SAT 98
[2024-04-19 15:00] VITALS: BP 113/59
--- NOTE | 2024-04-19 15:46 | CM ---
CM met with patient and family bedside, discussed [facility] can accept patient, will have bed Wednesday. CM spoke with insurance ([facility]), was instructed to fax clinicals to [phone], no auth or referral number given. CM was given voicemail
box to call for updates with insurance auth- [phone]. CM will continue to follow for discharge planning needs.
Plan; [facility] pending auth, faxed to insurance.
[2024-04-19 23:11] VITALS: BP 130/66
[2024-04-19] MEDS: LIDOCAINE 4% PATCH 1 PATCH TOPICAL (23:15)
[2024-04-19] MEDS: TRICOR 48 MG PO (23:16)
[2024-04-19] MEDS: FLOMAX 0.400000000000000022 MG PO (23:16)
[2024-04-19] MEDS: LIPITOR 20 MG PO (23:16)
[2024-04-19] MEDS: PHENERGAN WITH CODEINE SYRUP 10 ML PO (23:17)
[2024-04-20 06:00] VITALS: BMI 27.2
[2024-04-20 07:20] VITALS: BP 117/59
[2024-04-20 07:34] LABS: Hematocrit 28.5 % (39.0-52.0); Hemoglobin 9.5 g/dL (13.0-18.0); Mean Corp Hgb Conc. 33.3 g/dL (33.0-37.0); Mean Corpuscular Hgb 30.4 pg (27.0-31.0); Mean Corpuscular Volume 91.3 fL (80.0-94.0); Mean Platelet Volume 10.4 fL (7.4-10.4); Platelet Count 315 10^3/uL (130-400); Red Blood Cell Count 3.12 10^6/uL (4.70-6.10); Red Cell Dist. Width 15.7 % (11.5-14.5)
[2024-04-20 08:03] LABS: Blood Urea Nitrogen 30 mg/dl (9-20); Calcium 9.3 mg/dl (8.4-10.2); Carbon Dioxide 26 mmol/L (22-30); Chloride 101 mmol/L (98-107); Estimated Creatinine Clearance 37 ml/min; Glucose 110 mg/dl (70-99); Magnesium 1.9 mg/dl (1.6-2.3); Potassium 4.1 mmol/L (3.5-5.1); Sodium 136 mmol/L (135-145); eGFR 46.77
--- NOTE | 2024-04-20 08:44 | W.PN.HOSP.TC ---
Today's Communication/Plan
-
see bold
Assessment / Plan
Assessment / Plan
HPI: 78-year-old male with a past medical history of recent right hip fracture status post repair at [facility] 1 month ago, acute right lower extremity DVT status post IVC filter due GI bleed, CAD, stage III CKD, bladder cancer, hypertension,
hyperlipidemia, and type 2 diabetes presents from [facility] short-term rehab for worsening bilateral lower extremity edema. He was recently started on Lasix. Repeat lower extremity Dopplers here shows the previous acute right lower extremity
DVT.
#Worsening right lower extremity edema
#Worsening left foot edema
Denies shortness of breath
Echo reviewed, right foot x-ray negative
Appreciate cardiology input, patient does not have CHF
Patient's lower extremity edema is much improved on IV Lasix, medically stable for discharge on Lasix 20 mg p.o. daily
TEDs stockings to left leg
Medically stable for discharge to short-term rehab
#Recent right hip fracture status post repair at [facility] 1 month ago
PT/OT - rec SNF
#Dry cough for 2 weeks
Differential diagnosis include reflux, postnasal drip
Trial of Pepcid, change Flonase to twice a day scheduled upon discharge
#Acute right lower extremity DVT
Status post IVC filter, continue Plavix
No anticoagulation secondary to recent GI bleed
#Probable urinary tract infection
Urine cultures growing 50,000 of Enterococcus
Changed Rocephin to amoxicillin to complete 7-day course
#Acute urinary retention
Requiring straight cath on 04/20
Continue Flomax, continue bladder scan protocol
#Superficial bladder cancer status post TURBT
#Anemia of chronic disease
Monitor hemoglobin
#Anxiety
Continue as needed Xanax
#Stage III CKD
Monitor hemoglobin
DVT prophylaxis�subcu heparin
Full code
Updated daughter at bedside and on phone 04/20
Total time spent to see the patient on the floor, examine the patient, review data and lab results, discuss treatment plan with patient, nursing staff around 51 minutes.
Physical Exam
General: Frail, elderly, no acute distress
HEENT: Normocephalic, Atraumatic, EOMI, MMM
Respiratory: Clear to Auscultation bilaterally
Cardiac: Normal S1/S2, Regular Rate and Rhythm
GI: Soft, Nontender, Nondistended, Normal Bowel Sounds
Extremities:
Moderate right lower extremity edema
Mild left ankle/foot edema
Neuro: Nonfocal/Grossly Intact
Psych: Calm, Cooperative
Anticipated Discharge: Within 24 hours
Subjective/Interval History
-
Date of Service: April 20, 2024
Patient did not sleep much last night. He was at the nurses station. He is also having urinary retention, requiring straight cath. No fever, no vomiting.
Objective Data
-
Labs:
Laboratory Results
04/20/24
07:20
WBC 8.0
Hgb 9.5 L
Hct 28.5 L
Plt Count 315
Sodium 136
Potassium 4.1
Chloride 101
Carbon Dioxide 26
BUN 30 H
Creatinine 1.5 H
Glucose 110 H
Calcium 9.3
Vital Signs:
Vital Signs
Temp Pulse Resp BP Pulse Ox
97.6 F 89 20 117/59 97
04/20/24 07:20 04/20/24 07:20 04/20/24 07:20 04/20/24 07:20 04/20/24 07:20
I&O
04/19/24 04/20/24 04/21/24
06:59 06:59 06:59
Intake Total 720 / 720 600 / 600
Output Total 1025 / 1025
Balance -305 / -305 600 / 600
[2024-04-20] MEDS: LASIX 20 MG PO (09:01)
[2024-04-20] MEDS: CLARITIN 10 MG PO (09:02)
[2024-04-20] MEDS: PROTONIX 40 MG PO (09:02)
[2024-04-20] MEDS: IMDUR (EXTENDED RELEASE) 30 MG PO (09:02)
[2024-04-20] MEDS: PLAVIX 75 MG PO (09:02)
[2024-04-20] MEDS: TOPROL XL 50 MG PO (09:02)
[2024-04-20] MEDS: HEPARIN 5000 UNITS SC ×2 (09:02→20:42)
[2024-04-20] MEDS: MIRALAX 17 GRAMS PO (09:02)
[2024-04-20] MEDS: PEPCID 10 MG PO (09:02)
[2024-04-20] MEDS: AMOXIL 500 MG PO ×3 (09:03→20:43)
--- NOTE | 2024-04-20 12:22 | PTCARENOTE ---
pt's and daughter at the bedside. Updated on pt's night. Made them aware he was in donald chair most of the night as he was trying to get oob. He is now sleeping as he was up all night. Made them aware he did not eat breakfast as he wasn't
staying awake enough. Lunch is at the bedside and family will try to get him to eat. Call fagan in reach.
--- NOTE | 2024-04-20 15:05 | PTCARENOTE ---
DR Servin aware that pt has not had urine output since he was incontinent this morning. Bladder scan was performed for 690cc. Dr Servin placed straight cath order.
[2024-04-20 15:12] VITALS: BP 124/52
[2024-04-20] MEDS: PHENERGAN WITH CODEINE SYRUP 10 ML PO (20:43)
[2024-04-20] MEDS: LIPITOR 20 MG PO (20:43)
[2024-04-20] MEDS: SEROQUEL 25 MG PO (20:43)
[2024-04-20] MEDS: TRICOR 48 MG PO (20:43)
[2024-04-20] MEDS: MELATONIN 5 MG PO (20:43)
[2024-04-20] MEDS: FLOMAX 0.400000000000000022 MG PO (20:43)
[2024-04-20] MEDS: LIDOCAINE 4% PATCH 1 PATCH TOPICAL (20:50)
[2024-04-20 23:19] VITALS: BP 113/56
[2024-04-21 05:48] VITALS: BMI 27.3
[2024-04-21 06:50] LABS: Hematocrit 26.6 % (39.0-52.0); Hemoglobin 8.8 g/dL (13.0-18.0); Mean Corp Hgb Conc. 33.1 g/dL (33.0-37.0); Mean Corpuscular Hgb 30.6 pg (27.0-31.0); Mean Corpuscular Volume 92.4 fL (80.0-94.0); Mean Platelet Volume 10.9 fL (7.4-10.4); Platelet Count 312 10^3/uL (130-400); Red Blood Cell Count 2.88 10^6/uL (4.70-6.10); Red Cell Dist. Width 15.5 % (11.5-14.5); White Blood Cell Count 10.6 10^3/uL (4.8-10.8)
[2024-04-21 07:00] VITALS: BP 102/44
[2024-04-21] MEDS: PROTONIX 40 MG PO (08:20)
[2024-04-21] MEDS: CLARITIN 10 MG PO (08:20)
[2024-04-21] MEDS: IMDUR (EXTENDED RELEASE) 30 MG PO (08:20)
[2024-04-21] MEDS: LASIX 20 MG PO (08:21)
[2024-04-21] MEDS: PEPCID 10 MG PO (08:21)
[2024-04-21] MEDS: PLAVIX 75 MG PO (08:21)
[2024-04-21] MEDS: TOPROL XL 50 MG PO (08:21)
[2024-04-21] MEDS: AMOXIL 500 MG PO ×2 (08:22→15:03)
[2024-04-21] MEDS: HEPARIN 5000 UNITS SC (08:22)
[2024-04-21] MEDS: MIRALAX PO (08:22)
--- NOTE | 2024-04-21 08:36 | W.PN.HOSP.TC ---
Today's Communication/Plan
-
Discharge to short-term rehab
Assessment / Plan
Assessment / Plan
HPI: 78-year-old male with a past medical history of recent right hip fracture status post repair at [facility] 1 month ago, acute right lower extremity DVT status post IVC filter due GI bleed, CAD, stage III CKD, bladder cancer, hypertension,
hyperlipidemia, and type 2 diabetes presents from [facility] short-term rehab for worsening bilateral lower extremity edema. He was recently started on Lasix. Repeat lower extremity Dopplers here shows the previous acute right lower extremity
DVT.
#Worsening right lower extremity edema
#Worsening left foot edema
Denies shortness of breath
Echo reviewed, right foot x-ray negative
Appreciate cardiology input, patient does not have CHF
Patient's lower extremity edema is much improved on IV Lasix, medically stable for discharge on Lasix 20 mg p.o. daily
TEDs stockings to left leg
Medically stable for discharge to short-term rehab
#Recent right hip fracture status post repair at [facility] 1 month ago
PT/OT - rec SNF
#Dry cough for 2 weeks
Differential diagnosis include reflux, postnasal drip
Trial of Pepcid, change Flonase to twice a day scheduled upon discharge
#Acute right lower extremity DVT
Status post IVC filter, continue Plavix
No anticoagulation secondary to recent GI bleed
#Probable urinary tract infection
Urine cultures growing 50,000 of Enterococcus
Changed Rocephin to amoxicillin to complete 7-day course
#Acute urinary retention
Requiring straight cath on 04/20
Voiding 04/21
Continue Flomax, continue bladder scan protocol
#Superficial bladder cancer status post TURBT
#Anemia of chronic disease
Monitor Cr
#Anxiety
Continue as needed Xanax
#Stage III CKD
Monitor hemoglobin
DVT prophylaxis�subcu heparin
Full code
Updated daughter at bedside and on phone 04/20
Physical Exam
General: Frail, elderly, no acute distress
HEENT: Normocephalic, Atraumatic, EOMI, MMM
Respiratory: Clear to Auscultation bilaterally
Cardiac: Normal S1/S2, Regular Rate and Rhythm
GI: Soft, Nontender, Nondistended, Normal Bowel Sounds
Extremities:
Moderate right lower extremity edema
Mild left ankle/foot edema
Neuro: Nonfocal/Grossly Intact
Psych: Calm, Cooperative
Anticipated Discharge: Today
Subjective/Interval History
-
Date of Service: April 20, 2024
Patient continues to have a cough. He is now voiding. No fever, no vomiting.
Objective Data
-
Labs:
Laboratory Results
04/20/24
07:20
WBC 8.0
Hgb 9.5 L
Hct 28.5 L
Plt Count 315
Sodium 136
Potassium 4.1
Chloride 101
Carbon Dioxide 26
BUN 30 H
Creatinine 1.5 H
Glucose 110 H
Calcium 9.3
Vital Signs:
Vital Signs
Temp Pulse Resp BP Pulse Ox
98.4 F 85 20 124/52 95
04/20/24 15:12 04/20/24 15:12 04/20/24 15:12 04/20/24 15:12 04/20/24 15:12
I&O
04/19/24 04/20/24 04/21/24
06:59 06:59 06:59
Intake Total 720 / 720 600 / 600
Output Total 1025 / 1025 700 / 700
Balance -305 / -305 600 / 600 -700 / -700
--- NOTE | 2024-04-21 10:25 | CM ---
Addendum entered by Lauren Mcmillan 04/21/24 12:35:
CM received call from insurance, auth approved 04/21-04/28, next review 04/27 to Chase Lewis P: [phone], F: [phone]. Auth #[id number]. CM spoke with patients daughter, patient will need ambulance transport, scheduled for 4:30 p.m. CM reviewed
IMM over phone with daughter Imani, placed in chart. Patient seen, updated with transport time. [facility] updated with transport time. CM will continue to follow for all discharge planning needs.
Plan; [facility], 4:30 p.m. ambulance transport
Report: [phone]
Fax: [phone]
Original Note:
CM spoke with patients insurance [phone], informed auth for SNF is currently pending, reference #[id number], call reference number [id number]. CM will continue to check status of auth for SNF to [facility].
Plan; [facility] once auth approved.
--- NOTE | 2024-04-21 12:12 | W.DCSUMMARY ---
Discharge Summary
Discharge Data
Date of Admission: 04/17/24
Date of Discharge: 04/21/24
-
Pending Results: No
Hospital Course
Discharge diagnosis:
Worsening right lower extremity edema secondary to acute right lower extremity deep vein thrombosis
Worsening left foot edema
Recent right hip fracture status post repair at [facility] 1 month ago
Dry cough
Acute urinary tract infection
Acute urinary retention, resolved
Recent gastrointestinal bleed at [facility] 1 month ago
Superficial bladder cancer status post surgery
Anemia of chronic disease
Anxiety
Stage III chronic kidney disease
Consults: Cardiology
Echocardiogram:
Normal left ventricular systolic function. Left ventricular ejection fraction
is 55-60%.
Basal inferolateral hypokinesis.
Mild/moderate mitral regurgitation.
Aortic sclerosis without stenosis. Trace aortic regurgitation.
Normal right ventricular size and function.
Mild tricuspid regurgitation. Mildly elevated PASP. Estimated pulmonary artery
pressure of 35-40 mmHg.
Hospital course:
78-year-old male with a past medical history of recent right hip fracture status post repair at [facility] 1 month ago, acute right lower extremity DVT status post IVC filter due to GI bleed, CAD, stage III CKD, bladder cancer, hypertension,
hyperlipidemia, and type 2 diabetes presents from [facility] short-term rehab for worsening bilateral lower extremity edema. Patient has severe right lower extremity edema from his known acute right lower extremity DVT. Then he started
developing edema of his left foot and ankle.
Patient was seen in conjunction with cardiology. He was treated with IV Lasix. Echocardiogram results are as above. Heart failure was ruled out. This is likely gravity dependent edema. His right lower extremity edema is from his DVT. His left
foot and ankle edema improved. Left foot x-rays were negative. He diuresed quite well, cardiology recommends transitioning to Lasix 20 mg p.o. daily.
Patient complained of a dry cough during his hospitalization. He was trialed on Pepcid, but it did not improve. Other etiologies could be a postnasal drip. Upon discharge, his Flonase has been changed to twice a day scheduled instead of twice a
day as needed.
Patient also has a urinary tract infection. Urine cultures grew out Enterococcus. He was started on amoxicillin, and will be discharged on amoxicillin to complete a 7-day course.
Patient's hospital course was complicated by acute urinary retention, requiring straight catheterization x 1. He was able to void on the day of discharge.
Patient's medical conditions have been optimized. He is medically stable for discharge. He needs to follow-up with his primary care doctor 1 week after he leaves rehab, as well as his usual orthopedic surgeon in the office in 2 weeks.
Disposition: Short-term rehab
Discharge planning: Required 45
Discharge Plan
-
Patient Disposition: Skilled Nursing/SNF
Discharge Diagnosis/Procedures: Worsening bilateral lower extremity edema, right greater than left, recent right hip fracture status postrepair, dry cough, acute right lower extremity deep vein thrombosis, possible urinary tract infection, anemia of
chronic disease, stage III chronic kidney disease
Condition: Fair
Diet: Low Fat, Low Cholesterol and Low Sodium
Activity: As tolerated
Driving Restrictions: As prior to admission
Activity Restrictions/Additional Instructions:
Please follow-up with your primary care doctor 1 week after you leave rehab, and your usual orthopedic surgeon in 2 weeks.
Referrals:
Julito Perry MD [Family Provider] - in one week
Prescriptions:
New
amoxicillin 500 mg Capsule
500 mg PO TID 4 Days Qty: 12 0RF
melatonin 5 mg Tablet
5 mg PO DAILY@1999 Qty: 30 0RF
polyethylene glycol 3350 [HealthyLax] 17 gram Powder In Packet
17 g PO DAILY Qty: 0 0RF
Continued
fenofibrate nanocrystallized 145 MG tablet
145 mg PO HS
nitroglycerin 0.4 MG tablet, sublingual
0.4 mg sublingual [id number] PRN (Reason: chest pain)
atorvastatin 20 MG tablet
20 mg PO HS
isosorbide mononitrate 30 MG tablet extended release 24 hr
30 mg PO DAILY
tamsulosin 0.4 mg Capsule
0.4 mg PO HS Qty: 30 0RF
cyanocobalamin (vitamin B-12) 1,000 mcg capsule
1,000 mcg PO DAILY Qty: 30 0RF
acetaminophen [Tylenol] 325 mg Tablet
650 mg PO Q6HPRN PRN (Reason: mild pain)
metoprolol succinate [Toprol XL] 50 mg Tablet Extended Release 24 Hr
50 mg PO DAILY
clopidogrel [Plavix] 75 mg Tablet
75 mg PO DAILY
magnesium hydroxide [Milk of Magnesia] 400 mg/5 mL Suspension
2,400 mg PO [id number] PRN (Reason: constipation)
bisacodyl [Dulcolax (bisacodyl)] 10 mg Suppository
10 mg MN DAILYPRN PRN (Reason: if on bm aftr mom)
pantoprazole [Protonix] 40 mg Tablet,Delayed Release (Dr/Ec)
40 mg PO DAILY
lidocaine 5 % Adhesive Patch,Medicated
1 patch TOPICAL DAILY
Fleet Enema 19-7 gram/118 mL Enema
118 ml MN DAILYPRN PRN (Reason: if no bm aftr dulcolax)
loratadine [Claritin] 10 mg Tablet
10 mg PO DAILY
coQ10 (ubiquinol) 200 mg Capsule
200 mg PO DAILY
Changed
furosemide [Lasix] 20 mg Tablet
20 mg PO DAILY Qty: 0 0RF
Patient Comments:
for 7 days starting 04/17/2024
fluticasone propionate 50 mcg/actuation [place],Suspension
1 spray INTRANASAL BID Qty: 0 0RF
Discontinued
alprazolam 0.5 mg Tablet
0.5 mg PO DAILYPRN PRN (Reason: anxiety)
hydrocodone-acetaminophen 5-325 mg Tablet
1 tab PO Q4HPRN PRN (Reason: severe pains)
Discharge Orders:
Discharge Patient (As Directed); Ordered 04/21/24
Ordered By: Shilo Servin
Discharge Date and Time
Discharge Date/Time: 04/21/24 16:29
Print Language: PORTUGUESE
[2024-04-21 15:00] VITALS: BP 97/60
== END 2024-04-21 16:29 | DRG 300 ==
LOC: 4 WEST ACU 16:51
PROVIDERS: Emergency Medicine; Physician Assistant; Registered Nurse; ADMITTING PHYSICIAN Family Medicine; CONSULT PHYSICIAN Internal Medicine Cardiovascular Disease; EMERGENCY PHYSICIAN Emergency Medicine; FAMILY PHYSICIAN Family Medicine
DX: I82.441 Acute embolism and thrombosis of right tibial vein (principal); N39.0 Urinary tract infection, site not specified; D63.8 Anemia in other chronic diseases classified elsewhere; E11.22 Type 2 diabetes mellitus with diabetic chronic kidney disease; I12.9 Hypertensive chronic kidney disease with stage 1 through stage 4 chronic kidney disease, or unspecified chronic kidney disease; N18.30 Chronic kidney disease, stage 3 unspecified; I08.1 Rheumatic disorders of both mitral and tricuspid valves; I70.0 Atherosclerosis of aorta; Z95.828 Presence of other vascular implants and grafts; B95.2 Enterococcus as the cause of diseases classified elsewhere; E78.5 Hyperlipidemia, unspecified; I25.10 Atherosclerotic heart disease of native coronary artery without angina pectoris; F41.9 Anxiety disorder, unspecified; R60.0 Localized edema; R05.8 Other specified cough; R33.9 Retention of urine, unspecified; S72.001D Fracture of unspecified part of neck of right femur, subsequent encounter for closed fracture with routine healing; W19.XXXD Unspecified fall, subsequent encounter; Z79.02 Long term (current) use of antithrombotics/antiplatelets; Z79.899 Other long term (current) drug therapy; Z87.891 Personal history of nicotine dependence; Z95.1 Presence of aortocoronary bypass graft; Z95.5 Presence of coronary angioplasty implant and graft; Z87.19 Personal history of other diseases of the digestive system; Z85.51 Personal history of malignant neoplasm of bladder
CPT/HCPCS: 71046; 73620; 80048; 80053; 80061; 81003; 81015; 82248; 83735; 83880; 84439; 84443; 85018; 85025; 85027; 87077; 87086; 87186; 93005; 93306; 93971; 96374; 96375; 97116; 97162; 97166; 97530; 99285

== ENCOUNTER → 2024-05-04 10:40 | Outpatient (REF) | payer OTHER, SELFPAY ==
[2024-05-04 13:22] LABS: Blood Urea Nitrogen 26 mg/dl (9-20); Calcium 9.3 mg/dl (8.4-10.2); Carbon Dioxide 23 mmol/L (22-30); Chloride 103 mmol/L (98-107); Glucose 80 mg/dl (70-99); Potassium 4.9 mmol/L (3.5-5.1); Sodium 136 mmol/L (135-145); eGFR 50.81
[2024-05-04 13:25] LABS: % Immature Granulocytes 0.7 % (0-0.5); % Lymphocytes 15.4 % (20.5-51.1); % Monocytes 10.5 % (1.7-9.3); % Neutrophils 68.4 % (42.2-75.2); Absolute Basophils 0.1 10^3/uL (0-0.2); Absolute Eosinophils 0.3 10^3/uL (0-0.7); Absolute Immature Granulocytes 0.1 10^3/uL (0-0.05); Absolute Lymphocytes 1.1 10^3/uL (1.2-3.4); Absolute Monocytes 0.8 10^3/uL (0.1-0.6); Absolute Neutrophils 4.9 10^3/uL (1.4-6.5); Hematocrit 29.5 % (39.0-52.0); Hemoglobin 9.4 g/dL (13.0-18.0); Mean Corp Hgb Conc. 31.9 g/dL (33.0-37.0); Mean Corpuscular Hgb 29.6 pg (27.0-31.0); Mean Corpuscular Volume 92.8 fL (80.0-94.0); Mean Platelet Volume 10.9 fL (7.4-10.4); Nucleated Red Blood Cells % 0 % (-); Platelet Count 331 10^3/uL (130-400); Red Blood Cell Count 3.18 10^6/uL (4.70-6.10); Red Cell Dist. Width 15.5 % (11.5-14.5); White Blood Cell Count 7.2 10^3/uL (4.8-10.8)
== END ==
LOC: OLABP 10:40
PROVIDERS: ATTENDING PHYSICIAN Family Medicine
DX: I25.10 Atherosclerotic heart disease of native coronary artery without angina pectoris (principal); N18.30 Chronic kidney disease, stage 3 unspecified; I13.10 Hypertensive heart and chronic kidney disease without heart failure, with stage 1 through stage 4 chronic kidney disease, or unspecified chronic kidney disease; D63.8 Anemia in other chronic diseases classified elsewhere; E11.9 Type 2 diabetes mellitus without complications; Z85.51 Personal history of malignant neoplasm of bladder; M62.81 Muscle weakness (generalized); I82.401 Acute embolism and thrombosis of unspecified deep veins of right lower extremity; N39.0 Urinary tract infection, site not specified
CPT/HCPCS: 80048; 85025

== ENCOUNTER → 2024-05-08 11:32 | Outpatient (REF) | payer OTHER, SELFPAY ==
[2024-05-08 12:52] LABS: % Basophils 1.1 % (0-2); % Eosinophils 3.9 % (0-6); % Immature Granulocytes 0.3 % (0-0.5); % Neutrophils 67.7 % (42.2-75.2); Absolute Basophils 0.1 10^3/uL (0-0.2); Absolute Eosinophils 0.3 10^3/uL (0-0.7); Absolute Lymphocytes 1.2 10^3/uL (1.2-3.4); Absolute Monocytes 0.8 10^3/uL (0.1-0.6); Absolute Neutrophils 4.9 10^3/uL (1.4-6.5); Hemoglobin 9.3 g/dL (13.0-18.0); Mean Corp Hgb Conc. 32.1 g/dL (33.0-37.0); Mean Corpuscular Hgb 30.7 pg (27.0-31.0); Mean Corpuscular Volume 95.7 fL (80.0-94.0); Mean Platelet Volume 11.4 fL (7.4-10.4); Nucleated Red Blood Cells % 0 % (-); Platelet Count 287 10^3/uL (130-400); Red Blood Cell Count 3.03 10^6/uL (4.70-6.10); Red Cell Dist. Width 15.7 % (11.5-14.5); White Blood Cell Count 7.2 10^3/uL (4.8-10.8)
[2024-05-08 13:11] LABS: Blood Urea Nitrogen 28 mg/dl (9-20); Calcium 9.2 mg/dl (8.4-10.2); Carbon Dioxide 21 mmol/L (22-30); Chloride 106 mmol/L (98-107); Glucose 83 mg/dl (70-99); Potassium 4.9 mmol/L (3.5-5.1); Sodium 137 mmol/L (135-145); eGFR 46.77
== END ==
LOC: OLABP 11:32
PROVIDERS: ATTENDING PHYSICIAN Family Medicine
DX: I25.10 Atherosclerotic heart disease of native coronary artery without angina pectoris (principal); N18.30 Chronic kidney disease, stage 3 unspecified; I13.10 Hypertensive heart and chronic kidney disease without heart failure, with stage 1 through stage 4 chronic kidney disease, or unspecified chronic kidney disease; D63.8 Anemia in other chronic diseases classified elsewhere; E11.9 Type 2 diabetes mellitus without complications; Z85.51 Personal history of malignant neoplasm of bladder; M62.81 Muscle weakness (generalized); I82.401 Acute embolism and thrombosis of unspecified deep veins of right lower extremity; B95.2 Enterococcus as the cause of diseases classified elsewhere; N39.0 Urinary tract infection, site not specified
CPT/HCPCS: 36415; 80048; 85025

== ENCOUNTER → 2024-05-09 11:25 | Outpatient (REF) | payer OTHER, SELFPAY ==
[2024-05-09 12:36] LABS: % Basophils 0.8 % (0-2); % Eosinophils 3.9 % (0-6); % Immature Granulocytes 0.3 % (0-0.5); % Lymphocytes 14.4 % (20.5-51.1); % Monocytes 11.5 % (1.7-9.3); % Neutrophils 69.1 % (42.2-75.2); Absolute Basophils 0.1 10^3/uL (0-0.2); Absolute Eosinophils 0.3 10^3/uL (0-0.7); Absolute Lymphocytes 0.9 10^3/uL (1.2-3.4); Absolute Monocytes 0.7 10^3/uL (0.1-0.6); Absolute Neutrophils 4.4 10^3/uL (1.4-6.5); Hemoglobin 9.4 g/dL (13.0-18.0); Mean Corp Hgb Conc. 32.4 g/dL (33.0-37.0); Mean Corpuscular Hgb 30.4 pg (27.0-31.0); Mean Corpuscular Volume 93.9 fL (80.0-94.0); Mean Platelet Volume 11.7 fL (7.4-10.4); Nucleated Red Blood Cells % 0 % (-); Platelet Count 284 10^3/uL (130-400); Red Blood Cell Count 3.09 10^6/uL (4.70-6.10); Red Cell Dist. Width 15.7 % (11.5-14.5); White Blood Cell Count 6.4 10^3/uL (4.8-10.8)
[2024-05-09 13:30] LABS: Blood Urea Nitrogen 30 mg/dl (9-20); Calcium 9.5 mg/dl (8.4-10.2); Carbon Dioxide 22 mmol/L (22-30); Chloride 106 mmol/L (98-107); Glucose 91 mg/dl (70-99); Sodium 136 mmol/L (135-145); eGFR 43.29
== END ==
LOC: OLABP 11:25
PROVIDERS: ATTENDING PHYSICIAN Family Medicine
DX: I82.401 Acute embolism and thrombosis of unspecified deep veins of right lower extremity (principal); R60.0 Localized edema
CPT/HCPCS: 80048; 85025

== ENCOUNTER → 2024-05-15 09:16 | Outpatient (REF) | payer OTHER, SELFPAY ==
[2024-05-15 11:25] LABS: % Basophils 0.8 % (0-2); % Eosinophils 4.4 % (0-6); % Immature Granulocytes 0.5 % (0-0.5); % Lymphocytes 17.3 % (20.5-51.1); % Monocytes 13.6 % (1.7-9.3); % Neutrophils 63.4 % (42.2-75.2); Absolute Basophils 0.1 10^3/uL (0-0.2); Absolute Eosinophils 0.3 10^3/uL (0-0.7); Absolute Lymphocytes 1.1 10^3/uL (1.2-3.4); Absolute Monocytes 0.8 10^3/uL (0.1-0.6); Absolute Neutrophils 3.9 10^3/uL (1.4-6.5); Hematocrit 28.8 % (39.0-52.0); Hemoglobin 9.4 g/dL (13.0-18.0); Mean Corp Hgb Conc. 32.6 g/dL (33.0-37.0); Mean Corpuscular Hgb 30.4 pg (27.0-31.0); Mean Corpuscular Volume 93.2 fL (80.0-94.0); Mean Platelet Volume 11.9 fL (7.4-10.4); Nucleated Red Blood Cells % 0 % (-); Platelet Count 262 10^3/uL (130-400); Red Blood Cell Count 3.09 10^6/uL (4.70-6.10); Red Cell Dist. Width 15.8 % (11.5-14.5); White Blood Cell Count 6.2 10^3/uL (4.8-10.8)
[2024-05-15 11:26] LABS: ALT (SGPT) 11 U/L (0-50); AST (SGOT) 23 U/L (17-59); Albumin 3.6 g/dl (3.5-5.0); Alkaline Phosphatase 184 U/L (38-126); Blood Urea Nitrogen 36 mg/dl (9-20); Calcium 9.3 mg/dl (8.4-10.2); Carbon Dioxide 23 mmol/L (22-30); Chloride 102 mmol/L (98-107); Glucose 88 mg/dl (70-99); Potassium 4.7 mmol/L (3.5-5.1); Sodium 134 mmol/L (135-145); Total Bilirubin 0.4 mg/dl (0.2-1.3); Total Protein 6.4 g/dl (6.3-8.2); eGFR 43.29
== END ==
LOC: OLABP 09:16
PROVIDERS: ATTENDING PHYSICIAN Family Medicine
DX: I25.10 Atherosclerotic heart disease of native coronary artery without angina pectoris (principal); N18.30 Chronic kidney disease, stage 3 unspecified; I13.10 Hypertensive heart and chronic kidney disease without heart failure, with stage 1 through stage 4 chronic kidney disease, or unspecified chronic kidney disease; D63.8 Anemia in other chronic diseases classified elsewhere; E11.9 Type 2 diabetes mellitus without complications; Z85.51 Personal history of malignant neoplasm of bladder; M62.81 Muscle weakness (generalized); I82.401 Acute embolism and thrombosis of unspecified deep veins of right lower extremity; B95.2 Enterococcus as the cause of diseases classified elsewhere; N39.0 Urinary tract infection, site not specified
CPT/HCPCS: 36415; 80053; 85025

== ENCOUNTER → 2024-05-20 10:15 | Outpatient (REF) | payer OTHER, SELFPAY ==
[2024-05-20 11:03] LABS: Blood Urea Nitrogen 36 mg/dl (9-20); Calcium 9.7 mg/dl (8.4-10.2); Carbon Dioxide 26 mmol/L (22-30); Chloride 101 mmol/L (98-107); Glucose 99 mg/dl (70-99); Potassium 4.9 mmol/L (3.5-5.1); Sodium 136 mmol/L (135-145); eGFR 40.25
== END ==
LOC: REG 10:15
PROVIDERS: ATTENDING PHYSICIAN Family Medicine
DX: I25.10 Atherosclerotic heart disease of native coronary artery without angina pectoris (principal); N18.30 Chronic kidney disease, stage 3 unspecified; I13.10 Hypertensive heart and chronic kidney disease without heart failure, with stage 1 through stage 4 chronic kidney disease, or unspecified chronic kidney disease; D63.8 Anemia in other chronic diseases classified elsewhere; E11.9 Type 2 diabetes mellitus without complications; Z85.51 Personal history of malignant neoplasm of bladder; M62.81 Muscle weakness (generalized); I82.401 Acute embolism and thrombosis of unspecified deep veins of right lower extremity; B95.2 Enterococcus as the cause of diseases classified elsewhere; N39.0 Urinary tract infection, site not specified
CPT/HCPCS: 80048

== ENCOUNTER → 2024-05-22 12:26 | Outpatient (REF) | payer OTHER, SELFPAY ==
[2024-05-22 14:43] LABS: % Basophils 0.9 % (0-2); % Eosinophils 5.3 % (0-6); % Immature Granulocytes 0.4 % (0-0.5); % Lymphocytes 16.2 % (20.5-51.1); % Monocytes 11.3 % (1.7-9.3); % Neutrophils 65.9 % (42.2-75.2); Absolute Basophils 0.1 10^3/uL (0-0.2); Absolute Eosinophils 0.4 10^3/uL (0-0.7); Absolute Lymphocytes 1.1 10^3/uL (1.2-3.4); Absolute Monocytes 0.8 10^3/uL (0.1-0.6); Absolute Neutrophils 4.5 10^3/uL (1.4-6.5); Hematocrit 31.3 % (39.0-52.0); Mean Corp Hgb Conc. 31.9 g/dL (33.0-37.0); Mean Corpuscular Hgb 30.6 pg (27.0-31.0); Mean Corpuscular Volume 95.7 fL (80.0-94.0); Mean Platelet Volume 11.9 fL (7.4-10.4); Nucleated Red Blood Cells % 0 % (-); Platelet Count 266 10^3/uL (130-400); Red Blood Cell Count 3.27 10^6/uL (4.70-6.10); Red Cell Dist. Width 15.8 % (11.5-14.5); White Blood Cell Count 6.8 10^3/uL (4.8-10.8)
[2024-05-22 14:51] LABS: Blood Urea Nitrogen 39 mg/dl (9-20); Calcium 9.7 mg/dl (8.4-10.2); Carbon Dioxide 25 mmol/L (22-30); Chloride 99 mmol/L (98-107); Glucose 85 mg/dl (70-99); Potassium 4.7 mmol/L (3.5-5.1); Sodium 132 mmol/L (135-145); eGFR 40.25
== END ==
LOC: OLABP 12:26
PROVIDERS: ATTENDING PHYSICIAN Family Medicine
DX: I25.10 Atherosclerotic heart disease of native coronary artery without angina pectoris (principal); N18.30 Chronic kidney disease, stage 3 unspecified; I13.10 Hypertensive heart and chronic kidney disease without heart failure, with stage 1 through stage 4 chronic kidney disease, or unspecified chronic kidney disease; D63.8 Anemia in other chronic diseases classified elsewhere; E11.9 Type 2 diabetes mellitus without complications; Z85.51 Personal history of malignant neoplasm of bladder; M62.81 Muscle weakness (generalized); I82.401 Acute embolism and thrombosis of unspecified deep veins of right lower extremity
CPT/HCPCS: 80048; 85025

== ENCOUNTER → 2024-06-16 06:44 | Outpatient (REF) | payer OTHER, SELFPAY ==
[2024-06-16 07:28] LABS: % Basophils 0.8 % (0-2); % Eosinophils 6.8 % (0-6); % Immature Granulocytes 0.3 % (0-0.5); % Lymphocytes 14.8 % (20.5-51.1); % Monocytes 8.4 % (1.7-9.3); % Neutrophils 68.9 % (42.2-75.2); Absolute Basophils 0.1 10^3/uL (0-0.2); Absolute Eosinophils 0.5 10^3/uL (0-0.7); Absolute Monocytes 0.6 10^3/uL (0.1-0.6); Absolute Neutrophils 4.6 10^3/uL (1.4-6.5); Hematocrit 35.8 % (39.0-52.0); Hemoglobin 11.5 g/dL (13.0-18.0); Mean Corp Hgb Conc. 32.1 g/dL (33.0-37.0); Mean Corpuscular Hgb 29.8 pg (27.0-31.0); Mean Corpuscular Volume 92.7 fL (80.0-94.0); Mean Platelet Volume 12.1 fL (7.4-10.4); Nucleated Red Blood Cells % 0 % (-); Platelet Count 209 10^3/uL (130-400); Red Blood Cell Count 3.86 10^6/uL (4.70-6.10); Red Cell Dist. Width 15.8 % (11.5-14.5); White Blood Cell Count 6.6 10^3/uL (4.8-10.8)
[2024-06-16 07:54] LABS: Microalbumin, Random Urine 1.7 mg/dl (0.6-1.7); Microalbumin/creatinine Ratio 20.2 mg/g
[2024-06-16 07:55] LABS: ALT (SGPT) < 10 U/L (0-50); AST (SGOT) 22 U/L (17-59); Albumin 4.2 g/dl (3.5-5.0); Alkaline Phosphatase 132 U/L (38-126); Blood Urea Nitrogen 50 mg/dl (9-20); Carbon Dioxide 27 mmol/L (22-30); Chloride 104 mmol/L (98-107); Glucose 95 mg/dl (70-99); HDL Cholesterol 30 mg/dl; LDL Cholesterol, Calculated 59 mg/dl; Potassium 4.2 mmol/L (3.5-5.1); Sodium 144 mmol/L (135-145); Total Bilirubin 0.6 mg/dl (0.2-1.3); Total Cholesterol 124 mg/dl (50-199); Total Protein 7.3 g/dl (6.3-8.2); Triglyceride 175 mg/dl (10-149); Very Low Density Lipoprotein 35 mg/dl (0-30); eGFR 40.25
[2024-06-16 08:49] LABS: Glycohemoglobin (HgbA1c) 5.7 % (4.0-5.6)
== END ==
LOC: REG 06:44
PROVIDERS: ATTENDING PHYSICIAN Family Medicine; FAMILY PHYSICIAN Internal Medicine Cardiovascular Disease
DX: E11.21 Type 2 diabetes mellitus with diabetic nephropathy (principal); I25.810 Atherosclerosis of coronary artery bypass graft(s) without angina pectoris; N18.32 Chronic kidney disease, stage 3b; D63.8 Anemia in other chronic diseases classified elsewhere
CPT/HCPCS: 36415; 80053; 80061; 82043; 82570; 83036; 85025

== ENCOUNTER → 2024-08-05 07:18 | Outpatient (REF) | payer OTHER, SELFPAY ==
[2024-08-05 08:33] LABS: % Basophils 0.7 % (0-2); % Eosinophils 1.8 % (0-6); % Immature Granulocytes 0.5 % (0-0.5); % Lymphocytes 17.7 % (20.5-51.1); % Neutrophils 70.3 % (42.2-75.2); Absolute Eosinophils 0.1 10^3/uL (0-0.7); Absolute Monocytes 0.5 10^3/uL (0.1-0.6); Absolute Neutrophils 3.9 10^3/uL (1.4-6.5); Hematocrit 34.5 % (39.0-52.0); Mean Corp Hgb Conc. 31.9 g/dL (33.0-37.0); Mean Corpuscular Hgb 29.3 pg (27.0-31.0); Mean Corpuscular Volume 91.8 fL (80.0-94.0); Mean Platelet Volume 11.8 fL (7.4-10.4); Nucleated Red Blood Cells % 0 % (-); Platelet Count 223 10^3/uL (130-400); Red Blood Cell Count 3.76 10^6/uL (4.70-6.10); White Blood Cell Count 5.6 10^3/uL (4.8-10.8)
[2024-08-05 08:45] LABS: D-Dimer 1.17 ug/mlFEU (0.00-0.50)
[2024-08-05 09:13] LABS: ALT (SGPT) 18 U/L (0-50); AST (SGOT) 29 U/L (17-59); Albumin 4.3 g/dl (3.5-5.0); Alkaline Phosphatase 134 U/L (38-126); Blood Urea Nitrogen 46 mg/dl (9-20); Calcium 9.5 mg/dl (8.4-10.2); Carbon Dioxide 21 mmol/L (22-30); Chloride 107 mmol/L (98-107); Glucose 106 mg/dl (70-99); Potassium 4.8 mmol/L (3.5-5.1); Sodium 143 mmol/L (135-145); Total Bilirubin 0.5 mg/dl (0.2-1.3); Total Protein 7.1 g/dl (6.3-8.2)
[2024-08-05 09:22] LABS: eGFR 46.77
== END ==
LOC: REG 07:18
PROVIDERS: ATTENDING PHYSICIAN Internal Medicine Hematology & Oncology; FAMILY PHYSICIAN Family Medicine
DX: I82.401 Acute embolism and thrombosis of unspecified deep veins of right lower extremity (principal)
CPT/HCPCS: 36415; 80053; 85025; 85379

== ENCOUNTER 2024-08-10 06:34 | Emergency (ER) | payer OTHER, SELFPAY ==
[2024-08-10 06:42] VITALS: BP 145/71; BMI 25.3
--- NOTE | 2024-08-10 07:51 | ED.GENMED ---
History of Present Illness
General
Chief Complaint: Fall
Source: patient
Exam Limitations: none
Time Seen by Provider: 08/10/24 06:47
History of Present Illness
History of Present Illness:
78-year-old male who presents after a fall. Patient states he got his walker caught on the threshold the bathroom and fell and struck his face. Complains of really no pain but struck his face and has some wounds on his extremities. Patient has
been rehabbing from a hip fracture and surgery. States he has been doing well and improving. No vomiting. No neck pain. No back pain. Patient did have a nosebleed that has since resolved
Past History
Past History
ED Past Medical History: CAD, HTN, Hypercholesterolemia, NIDDM and NC
ED Past Surgical History: Cardiac (CABG times 01/03/1997)
Social History
Tobacco: Non-smoker
Alcohol: Occasional
Drug: None
Personal:
Living: with family
Employment: Retired
Family History
Family History: Hypertension and CAD
Phy Exam
Physical Exam
Physical Exam:
CONSTITUTIONAL Vital signs reviewed, Patient alert and oriented to person, place and time. Well-appearing
HEAD small hematomas noted to the right forehead
ENT swelling noted to the nose with superficial V-shaped laceration noted to the bridge of the nose. He has moderate tenderness to the bridge of the nose. No maxillary tenderness. No mandibular tenderness no malocclusion.
EYES eyelids normal to inspection, Extraocular muscles intact, Conjunctiva normal, Sclera normal.
NECK normal range of motion, Trachea midline, no jugular venous distention.
RESP no respiratory distress
BACK No obvious deformities
UPPER EXTREMITY Gross Range of motion normal, gross motor strength normal. Small (less than 1 cm) scattered areas of superficial small skin tears noted to the left upper extremity and 1 to the right elbow.
LOWER EXTREMITY Gross range of motion normal (slight limited internal and external rotation of the right hip, at baseline from recent surgery), Gross motor strength normal.
NEURO Speech normal, No focal motor deficits include, Burton coma scale 15, Memory normal, Cranial Nerves intact to screening exam.
SKIN Skin warm, dry, and normal in color.
PSYCHIATRIC Patient oriented to person place and time, Normal affect.
Course
Orders/Labs/Results
Orders:
Orders
08/10/24 07:32
CT Head W/o Iv Contrast Urgent
Comment:
Reason For Exam: fall
08/10/24 09:02
Phenylephrine 0.5% Regular Spr [Manish-Synephrine 0.5% Nasal Wyalusing] 1 spray .ROUTE .[employer]
Vital Signs
Initial and Last Documented VS:
Initial Vital Signs
Temp Pulse Resp BP Pulse Ox
97.8 F 63 18 145/71 99
08/10/24 06:42 08/10/24 06:42 08/10/24 06:42 08/10/24 06:42 08/10/24 06:42
Last Documented Vital Signs
Temp Pulse Resp BP Pulse Ox
97.8 F 63 18 145/71 99
08/10/24 06:42 08/10/24 06:42 08/10/24 06:42 08/10/24 06:42 08/10/24 06:42
Procedures
Laceration Closure
Nose:
Status of Wound: clean
Size of Wound in cm: 1.5
Description of Wound Edges: flap-well vascularized
Preparation: cleaned with saline
Revision/Debridement: routine- no revision
Type of Closure: single layer closure and Dermabond-skin glue
MDM/Problems Addressed
Differential Diagnosis Includes:
Subdural hematoma, skull fracture
MDM/Problems Addressed:
Nasal fracture, head injury, skin tear, nasal laceration
*Radiology
Radiology exam reviewed: preliminary read by ED provider (No obvious intracranial hemorrhage) and radiology read reviewed
*Pulse Oximetry
Patient hypoxic: no
*Critical Care Note
Total Time (30-74mins, 75-104mins- exclusive of procedures): Not Applicable
Data Reviewed
Source: patient and family
Further Testing Considered But Not Given:
Consider C-spine imaging but no midline tenderness.
Patient Management
Discussion with other providers: Radiologist
Escalation/DeEscalation of care consider admission/obs:
CT negative for intracranial hemorrhage but does note nasal fracture. Laceration repaired. Wyalusing each nostril of Manish-Synephrine was applied and no further epistaxis. Okay for discharge with family
ED Attending Note
-
Portions of this chart may have been created with voice recognition software.� Occasional wrong word or��sound alike� substitutions may have occurred due to the inherent limitations of voice recognition software.
Discharge Plan
Departure
Patient Disposition: Home (Routine Discharge)
Date of Disposition: 08/10/24
Time of Disposition: 09:12
Patient with high blood pressure during this ER visit?: Yes
Discharge Problem:
Head injury, Facial laceration, Fracture of nasal bone
Instructions: Laceration Repair With Glue (DC), Head Injury in Adults (DC), Contusion (DC), Facial Fracture (DC), Nose Fracture ED
Prescriptions:
No Action
fenofibrate nanocrystallized 145 MG tablet
145 mg PO HS
nitroglycerin 0.4 MG tablet, sublingual
0.4 mg sublingual [id number] PRN (Reason: chest pain)
atorvastatin 20 MG tablet
20 mg PO HS
isosorbide mononitrate 30 MG tablet extended release 24 hr
30 mg PO DAILY
tamsulosin 0.4 mg Capsule
0.4 mg PO HS Qty: 30 0RF
cyanocobalamin (vitamin B-12) 1,000 mcg capsule
1,000 mcg PO DAILY Qty: 30 0RF
acetaminophen [Tylenol] 325 mg Tablet
650 mg PO Q6HPRN PRN (Reason: mild pain)
metoprolol succinate [Toprol XL] 50 mg Tablet Extended Release 24 Hr
50 mg PO DAILY
clopidogrel [Plavix] 75 mg Tablet
75 mg PO DAILY
magnesium hydroxide [Milk of Magnesia] 400 mg/5 mL Suspension
2,400 mg PO [id number] PRN (Reason: constipation)
bisacodyl [Dulcolax (bisacodyl)] 10 mg Suppository
10 mg LA DAILYPRN PRN (Reason: if on bm aftr mom)
pantoprazole [Protonix] 40 mg Tablet,Delayed Release (Dr/Ec)
40 mg PO DAILY
lidocaine 5 % Adhesive Patch,Medicated
1 patch TOPICAL DAILY
Fleet Enema 19-7 gram/118 mL Enema
118 ml LA DAILYPRN PRN (Reason: if no bm aftr dulcolax)
loratadine [Claritin] 10 mg Tablet
10 mg PO DAILY
coQ10 (ubiquinol) 200 mg Capsule
200 mg PO DAILY
amoxicillin 500 mg Capsule
500 mg PO TID 4 Days Qty: 12 0RF
melatonin 5 mg Tablet
5 mg PO DAILY@1999 Qty: 30 0RF
polyethylene glycol 3350 [HealthyLax] 17 gram Powder In Packet
17 g PO DAILY Qty: 0 0RF
furosemide [Lasix] 20 mg Tablet
20 mg PO DAILY Qty: 0 0RF
Patient Comments:
for 7 days starting 04/17/2024
fluticasone propionate 50 mcg/actuation Wyalusing,Suspension
1 spray INTRANASAL BID Qty: 0 0RF
Referrals:
Julito Perry MD [Family Provider] -
Activity Restrictions/Additional Instructions:
Please be sure to ice your injuries. Use Tylenol as needed for pain control. Please see your doctor in the next 1 week for follow-up and reevaluation. Return immediately for intractable vomiting, change in mentation, difficulty breathing or any
other concerns.
Interventions
Interventions:
*Risk Screen - Suicide Last Done: 08/10/24 06:42
*General Assessment Last Done: 08/10/24 06:42
*Neglect/Abuse Screening Last Done: 08/10/24 06:42
ED- Fall Risk Assessment Last Done: 08/10/24 06:42
*ED COVID-19 Vaccine History Last Done: 08/10/24 06:42
ED-Musculoskeletal Assessment Last Done: 08/10/24 06:57
ED- Neurological Assessment Last Done: 08/10/24 06:57
ED-Skin Assessment Last Done: 08/10/24 06:57
Discharge Date and Time
Print Language: ETHIOPIAN
[2024-08-10 09:20] VITALS: BP 158/78
== END 2024-08-10 09:24 | disposition home or self-care (01) ==
LOC: EMR 06:34
PROVIDERS: EMERGENCY PHYSICIAN Emergency Medicine; FAMILY PHYSICIAN Family Medicine
DX: S09.90XA Unspecified injury of head, initial encounter (principal); S01.21XA Laceration without foreign body of nose, initial encounter; S02.2XXA Fracture of nasal bones, initial encounter for closed fracture; W19.XXXA Unspecified fall, initial encounter; I25.10 Atherosclerotic heart disease of native coronary artery without angina pectoris; I10 Essential (primary) hypertension; E78.00 Pure hypercholesterolemia, unspecified; E11.9 Type 2 diabetes mellitus without complications; I25.2 Old myocardial infarction; Z82.49 Family history of ischemic heart disease and other diseases of the circulatory system; Z95.1 Presence of aortocoronary bypass graft
CPT/HCPCS: 99284; 12011; 70450

== ENCOUNTER → 2024-08-16 08:42 | Outpatient (REF) | payer OTHER, SELFPAY | LOC: RAD 08:42 | PROVIDERS: ATTENDING PHYSICIAN Internal Medicine Hematology & Oncology; FAMILY PHYSICIAN Family Medicine; REFERRING PHYSICIAN Internal Medicine Cardiovascular Disease | DX: I82.401 Acute embolism and thrombosis of unspecified deep veins of right lower extremity (principal) | CPT/HCPCS: 93970 ==

== ENCOUNTER → 2024-09-23 07:01 | Outpatient (REF) | payer OTHER, SELFPAY ==
[2024-09-23 08:35] LABS: % Eosinophils 3.8 % (0-6); % Immature Granulocytes 0.8 % (0-0.5); % Lymphocytes 18.1 % (20.5-51.1); % Monocytes 10.3 % (1.7-9.3); Absolute Basophils 0.1 10^3/uL (0-0.2); Absolute Eosinophils 0.2 10^3/uL (0-0.7); Absolute Lymphocytes 0.9 10^3/uL (1.2-3.4); Absolute Monocytes 0.5 10^3/uL (0.1-0.6); Absolute Neutrophils 3.3 10^3/uL (1.4-6.5); Hematocrit 36.2 % (39.0-52.0); Hemoglobin 11.3 g/dL (13.0-18.0); Mean Corp Hgb Conc. 31.2 g/dL (33.0-37.0); Mean Corpuscular Hgb 30.9 pg (27.0-31.0); Mean Corpuscular Volume 98.9 fL (80.0-94.0); Mean Platelet Volume 11.6 fL (7.4-10.4); Nucleated Red Blood Cells % 0 % (-); Platelet Count 192 10^3/uL (130-400); Red Blood Cell Count 3.66 10^6/uL (4.70-6.10)
[2024-09-23 08:42] LABS: D-Dimer 1.05 ug/mlFEU (0.00-0.50)
[2024-09-23 09:04] LABS: Iron 159 ug/dl (49-181)
[2024-09-23 09:15] LABS: Erythrocyte Sed Rate 23 mm/hour (0-20)
[2024-09-23 09:58] LABS: Folate > 20.0 ng/ml (2.76-20); Vitamin B12 > 1000 pg/ml (239-931)
== END ==
LOC: REG 07:01
PROVIDERS: ATTENDING PHYSICIAN Internal Medicine Gastroenterology; FAMILY PHYSICIAN Family Medicine; REFERRING PHYSICIAN Internal Medicine Hematology & Oncology
DX: D50.9 Iron deficiency anemia, unspecified (principal); I82.401 Acute embolism and thrombosis of unspecified deep veins of right lower extremity
CPT/HCPCS: 36415; 82607; 82728; 82746; 83540; 85025; 85379; 85652

== ENCOUNTER → 2024-10-30 06:53 | Outpatient (REF) | payer OTHER, SELFPAY | LOC: REG 06:53 | PROVIDERS: ATTENDING PHYSICIAN Internal Medicine Hematology & Oncology; FAMILY PHYSICIAN Family Medicine | DX: I82.401 Acute embolism and thrombosis of unspecified deep veins of right lower extremity (principal) | CPT/HCPCS: 36415; 85379 ==

== ENCOUNTER → 2024-11-21 10:00 | Outpatient (REF) | payer OTHER, SELFPAY ==
[2024-11-21 11:25] LABS: D-Dimer 2.11 ug/mlFEU (0.00-0.50)
== END ==
LOC: REG 10:00
PROVIDERS: ATTENDING PHYSICIAN Internal Medicine Hematology & Oncology; FAMILY PHYSICIAN Family Medicine
DX: I82.401 Acute embolism and thrombosis of unspecified deep veins of right lower extremity (principal)
CPT/HCPCS: 36415; 85379

== ENCOUNTER → 2025-01-13 07:09 | Outpatient (REF) | payer OTHER, SELFPAY ==
[2025-01-13 08:50] LABS: % Basophils 0.8 % (0-2); % Eosinophils 4.5 % (0-6); % Immature Granulocytes 0.7 % (0-0.5); % Lymphocytes 17.1 % (20.5-51.1); % Monocytes 10.3 % (1.7-9.3); % Neutrophils 66.6 % (42.2-75.2); Absolute Basophils 0.1 10^3/uL (0-0.2); Absolute Eosinophils 0.3 10^3/uL (0-0.7); Absolute Monocytes 0.6 10^3/uL (0.1-0.6); Hematocrit 38.3 % (39.0-52.0); Hemoglobin 12.2 g/dL (13.0-18.0); Mean Corp Hgb Conc. 31.9 g/dL (33.0-37.0); Mean Corpuscular Volume 97.2 fL (80.0-94.0); Mean Platelet Volume 11.2 fL (7.4-10.4); Nucleated Red Blood Cells % 0 % (-); Platelet Count 209 10^3/uL (130-400); Red Blood Cell Count 3.94 10^6/uL (4.70-6.10); Red Cell Dist. Width 15.2 % (11.5-14.5)
[2025-01-13 09:41] LABS: ALT (SGPT) 19 U/L (0-50); AST (SGOT) 34 U/L (17-59); Albumin 4.7 g/dl (3.5-5.0); Alkaline Phosphatase 106 U/L (38-126); Blood Urea Nitrogen 45 mg/dl (9-20); Calcium 9.9 mg/dl (8.4-10.2); Carbon Dioxide 24 mmol/L (22-30); Chloride 107 mmol/L (98-107); Glucose 106 mg/dl (70-99); HDL Cholesterol 31 mg/dl; Iron 122 ug/dl (49-181); LDL Cholesterol, Calculated 63 mg/dl; Potassium 4.9 mmol/L (3.5-5.1); Sodium 143 mmol/L (135-145); Total Bilirubin 0.8 mg/dl (0.2-1.3); Total Cholesterol 140 mg/dl (50-199); Total Protein 7.6 g/dl (6.3-8.2); Triglyceride 231 mg/dl (10-149); Very Low Density Lipoprotein 46 mg/dl (0-30); eGFR 31.04
[2025-01-13 09:48] LABS: Glycohemoglobin (HgbA1c) 5.7 % (4.0-5.6)
[2025-01-13 09:50] LABS: Percent Saturation 31 % (20-50); Total Iron Binding Capacity 393 ug/dl (261-462)
== END ==
LOC: REG 07:09
PROVIDERS: ATTENDING PHYSICIAN Family Medicine
DX: I25.810 Atherosclerosis of coronary artery bypass graft(s) without angina pectoris (principal); D63.8 Anemia in other chronic diseases classified elsewhere; E11.21 Type 2 diabetes mellitus with diabetic nephropathy
CPT/HCPCS: 36415; 80053; 80061; 82728; 83036; 83540; 83550; 85025

== ENCOUNTER → 2025-04-30 12:42 | Outpatient (REF) | payer OTHER, SELFPAY | LOC: PAVMRI 12:42 | PROVIDERS: ATTENDING PHYSICIAN Psychiatry & Neurology Vascular Neurology; FAMILY PHYSICIAN Family Medicine; OTHER PHYSICIAN Psychiatry & Neurology Psychiatry | DX: F02.80 Dementia in other diseases classified elsewhere, unspecified severity, without behavioral disturbance, psychotic disturbance, mood disturbance, and anxiety (principal) | CPT/HCPCS: 70551 ==

== ENCOUNTER → 2025-05-01 07:31 | Outpatient (REF) | payer OTHER, SELFPAY ==
[2025-05-01 08:56] LABS: Hematocrit 39.1 % (39.0-52.0); Hemoglobin 12.5 g/dL (13.0-18.0); Mean Corp Hgb Conc. 32.0 g/dL (33.0-37.0); Mean Corpuscular Volume 99.0 fL (80.0-94.0); Nucleated Red Blood Cells % 0 % (-); Platelet Count 184 10^3/uL (130-400); Red Cell Dist. Width 13.0 % (11.5-14.5)
[2025-05-01 09:43] LABS: ALT (SGPT) 17 U/L (0-50); AST (SGOT) 22 U/L (17-59); Albumin 4.3 g/dl (3.5-5.0); Alkaline Phosphatase 94 U/L (38-126); Blood Urea Nitrogen 48 mg/dl (9-20); Calcium 9.8 mg/dl (8.4-10.2); Carbon Dioxide 25 mmol/L (22-30); Chloride 108 mmol/L (98-107); Glucose 107 mg/dl (70-99); HDL Cholesterol 45 mg/dl; Iron 87 ug/dl (49-181); LDL Cholesterol, Calculated 81 mg/dl; Potassium 5.0 mmol/L (3.5-5.1); Sodium 140 mmol/L (135-145); Total Protein 7.3 g/dl (6.3-8.2); Very Low Density Lipoprotein 31 mg/dl (0-30); eGFR 35.00
[2025-05-01 09:52] LABS: Total Iron Binding Capacity 319 ug/dl (261-462)
[2025-05-01 09:53] LABS: Glycohemoglobin (HgbA1c) 5.9 % (4.0-5.6)
[2025-05-01 13:48] LABS: Ferritin 456.0 ng/ml (17.9-464.0)
== END ==
LOC: REG 07:31
PROVIDERS: ATTENDING PHYSICIAN Family Medicine
DX: I25.810 Atherosclerosis of coronary artery bypass graft(s) without angina pectoris (principal); D63.8 Anemia in other chronic diseases classified elsewhere; E11.21 Type 2 diabetes mellitus with diabetic nephropathy
CPT/HCPCS: 36415; 80053; 80061; 82728; 83036; 83540; 83550; 85025

== ENCOUNTER 2025-05-03 06:33 | Day surgery (SDC) | payer OTHER, SELFPAY | END 2025-05-03 11:22 | disposition home or self-care (01) | LOC: GI 06:33 | PROVIDERS: ATTENDING PHYSICIAN Internal Medicine Gastroenterology | DX: D50.9 Iron deficiency anemia, unspecified (principal); R13.10 Dysphagia, unspecified; Q39.9 Congenital malformation of esophagus, unspecified; K44.9 Diaphragmatic hernia without obstruction or gangrene; K31.89 Other diseases of stomach and duodenum; K31.A0 Gastric intestinal metaplasia, unspecified; K29.50 Unspecified chronic gastritis without bleeding | CPT/HCPCS: 43239; 88305; 88342 ==

== ENCOUNTER → 2025-06-19 09:57 | Outpatient (REF) | payer OTHER, SELFPAY ==
[2025-06-19 11:06] LABS: Blood Urea Nitrogen 55 mg/dl (9-20); Calcium 9.7 mg/dl (8.4-10.2); Carbon Dioxide 24 mmol/L (22-30); Chloride 108 mmol/L (98-107); Glucose 158 mg/dl (70-99); Potassium 4.5 mmol/L (3.5-5.1); Sodium 140 mmol/L (135-145); eGFR 31.04
== END ==
LOC: REG 09:57
PROVIDERS: ATTENDING PHYSICIAN Internal Medicine Cardiovascular Disease; FAMILY PHYSICIAN Family Medicine
DX: R06.02 Shortness of breath (principal)
CPT/HCPCS: 36415; 80048; 83880